=== PATIENT | male | born 1960 | race Caucasian/White ===

== ENCOUNTER 2016-03-24 09:15 | Outpatient (RCR) | payer BC, OTHER ==
--- OUTSIDE RECORDS SUMMARY | 2016-01-22 13:27 | XMS REPORT | Continuity of Care Document ---
Author Author [facility] Organization [facility] Address Unknown Phone Unavailable Care Team Providers Care Grain Buyer Name Role Phone PCP Unavailable Source Comments Some departments are not documenting in the electronic medical record. If you do not see the information that you expected, contact Release of Information in the Health Information Management department at [phone] for further assistance in locating additional records.[facility] Active Allergies and Adverse Reactions Not on File Current Medications Not on file Active Problems Not on file Most Recent Encounters Date Type Specialty Providers Description 10/27/2015 Documentation Oncology Crissy Navarro, RN Social History Tobacco Use Types Packs/Day Years Used Date Never Assessed Plan of Care Health Maintenance Due Date Last Done Comments Hepatitis C Screening 1960 Physical (Comprehensive) 1969 Exam Pertussis Vaccine 1973 Tetanus Vaccine 1979 Colorectal Cancer 02/27/2012 Screening Influenza Vaccine 12/17/2015 Results from Last 3 Months Not on file
[2016-01-22 13:39] LABS: BASOPHILS % (AUTO) 1 % (0-10); EOSINOPHILS % (AUTO) 0 % (0-10); LYMPHOCYTES # (AUTO) 0.6 X 10^3 (1.0-4.0); LYMPHOCYTES % (AUTO) 12 % (12-44); MEAN CORPUSCULAR HEMOGLOBIN 31 PG (25-34); MEAN CORPUSCULAR HGB CONC 34 G/DL (32-36); MEAN CORPUSCULAR VOLUME 93 FL (80-99); MEAN PLATELET VOLUME 10.1 FL (7.4-10.4); MONOCYTES # (AUTO) 0.2 X 10^3 (0.0-1.0); MONOCYTES % (AUTO) 3 % (0-12); NEUTROPHILS # (AUTO) 4.4 X 10^3 (1.8-7.8); NEUTROPHILS % (AUTO) 85 % (42-75); PLATELET COUNT 294 10^3/uL (130-400); RED BLOOD COUNT 4.28 10^6/uL (4.35-5.85); RED CELL DISTRIBUTION WIDTH 14.7 % (10.0-14.5); WHITE BLOOD COUNT 5.2 10^3/uL (4.3-11.0)
[2016-01-22 13:59] LABS: ALANINE AMINOTRANSFERASE 19 U/L (0-55); ALBUMIN 4.4 G/DL (3.2-4.5); ANION GAP 15 MMOL/L (5-14); ASPARTATE AMINO TRANSFERASE 15 U/L (5-34); BILIRUBIN,TOTAL 0.9 MG/DL (0.1-1.0); BLOOD UREA NITROGEN 14 MG/DL (7-18); BUN/CREATININE RATIO 15; CALCIUM 9.2 MG/DL (8.5-10.1); CARBON DIOXIDE 20 MMOL/L (21-32); CHLORIDE 101 MMOL/L (98-107); CREATININE SERUM 0.95 MG/DL (0.60-1.30); GFR ESTIMATED > 60; GLUCOSE 140 MG/DL (70-105); POTASSIUM 3.8 MMOL/L (3.6-5.0); SODIUM 136 MMOL/L (135-145); TOTAL PROTEIN 6.6 G/DL (6.4-8.2)
[2016-01-23 02:09] LABS: LIGHT CHAIN KAPPA SERUM QUANT 9.31 mg/L (3.30-19.40); LIGHT CHAIN LAMBDA SERUM QUANT 7.27 mg/L (5.71-26.30)
[2016-02-05 09:59] LABS: BASOPHILS % (AUTO) 0 % (0-10); EOSINOPHILS # (AUTO) 0.1 10^3/uL (0.0-0.3); EOSINOPHILS % (AUTO) 0 % (0-10); LYMPHOCYTES % (AUTO) 8 % (12-44); MEAN CORPUSCULAR HEMOGLOBIN 32 PG (25-34); MEAN CORPUSCULAR HGB CONC 34 G/DL (32-36); MEAN CORPUSCULAR VOLUME 94 FL (80-99); MEAN PLATELET VOLUME 9.8 FL (7.4-10.4); MONOCYTES # (AUTO) 1.2 X 10^3 (0.0-1.0); MONOCYTES % (AUTO) 9 % (0-12); NEUTROPHILS # (AUTO) 11.1 X 10^3 (1.8-7.8); NEUTROPHILS % (AUTO) 83 % (42-75); PLATELET COUNT 66 10^3/uL (130-400); RED BLOOD COUNT 4.24 10^6/uL (4.35-5.85); RED CELL DISTRIBUTION WIDTH 15.4 % (10.0-14.5); WHITE BLOOD COUNT 13.4 10^3/uL (4.3-11.0)
[2016-02-05 10:32] LABS: ANION GAP 8 MMOL/L (5-14); BLOOD UREA NITROGEN 13 MG/DL (7-18); BUN/CREATININE RATIO 14; CALCIUM 9.2 MG/DL (8.5-10.1); CARBON DIOXIDE 28 MMOL/L (21-32); CHLORIDE 103 MMOL/L (98-107); CREATININE SERUM 0.93 MG/DL (0.60-1.30); GFR ESTIMATED > 60; GLUCOSE 131 MG/DL (70-105); SODIUM 139 MMOL/L (135-145)
[~2016-03-24 09:15] MED LIST: AMLO10TA4 PO; BORTEZOMIB 3.5 MG VELCADE SC SCH; ENAL5TAB PO; FLUO40CA12 PO; TEST100V3 IM
[2016-03-24 09:48] LABS: BASOPHILS # (AUTO) 0.1 10^3/uL (0.0-0.1); BASOPHILS % (AUTO) 1 % (0-10); EOSINOPHILS # (AUTO) 0.1 10^3/uL (0.0-0.3); EOSINOPHILS % (AUTO) 3 % (0-10); LYMPHOCYTES # (AUTO) 1.3 X 10^3 (1.0-4.0); LYMPHOCYTES % (AUTO) 25 % (12-44); MEAN CORPUSCULAR HEMOGLOBIN 32 PG (25-34); MEAN CORPUSCULAR HGB CONC 34 G/DL (32-36); MEAN CORPUSCULAR VOLUME 93 FL (80-99); MEAN PLATELET VOLUME 9.6 FL (7.4-10.4); MONOCYTES # (AUTO) 0.7 X 10^3 (0.0-1.0); MONOCYTES % (AUTO) 14 % (0-12); NEUTROPHILS # (AUTO) 2.9 X 10^3 (1.8-7.8); NEUTROPHILS % (AUTO) 57 % (42-75); PLATELET COUNT 235 10^3/uL (130-400); RED BLOOD COUNT 4.42 10^6/uL (4.35-5.85); RED CELL DISTRIBUTION WIDTH 16.1 % (10.0-14.5); WHITE BLOOD COUNT 5.1 10^3/uL (4.3-11.0)
[2016-03-24 10:17] LABS: ALANINE AMINOTRANSFERASE 20 U/L (0-55); ALBUMIN 4.5 G/DL (3.2-4.5); ANION GAP 12 MMOL/L (5-14); ASPARTATE AMINO TRANSFERASE 20 U/L (5-34); BILIRUBIN,TOTAL 0.7 MG/DL (0.1-1.0); BLOOD UREA NITROGEN 17 MG/DL (7-18); BUN/CREATININE RATIO 18; CALCIUM 9.8 MG/DL (8.5-10.1); CARBON DIOXIDE 20 MMOL/L (21-32); CHLORIDE 105 MMOL/L (98-107); CREATININE SERUM 0.93 MG/DL (0.60-1.30); GFR ESTIMATED > 60; GLUCOSE 121 MG/DL (70-105); LACTATE DEHYDROGENASE 269 U/L (125-220); POTASSIUM 3.8 MMOL/L (3.6-5.0); SODIUM 137 MMOL/L (135-145); TOTAL PROTEIN 6.9 G/DL (6.4-8.2)
[2016-03-24] MEDS ORDERED: ZOLEDRONIC ACID (CANCER CTR) 4 MG in NS (IVPB) CANCER CENTER 100 ML IV SCH (11:00)
[2016-03-24 11:01] LABS: MAGNESIUM 2.2 MG/DL (1.8-2.4)
[2016-04-21 10:59] LABS: BASOPHILS % (AUTO) 1 % (0-10); EOSINOPHILS # (AUTO) 0.1 10^3/uL (0.0-0.3); EOSINOPHILS % (AUTO) 2 % (0-10); LYMPHOCYTES # (AUTO) 1.4 X 10^3 (1.0-4.0); LYMPHOCYTES % (AUTO) 33 % (12-44); MEAN CORPUSCULAR HEMOGLOBIN 33 PG (25-34); MEAN CORPUSCULAR HGB CONC 34 G/DL (32-36); MEAN CORPUSCULAR VOLUME 96 FL (80-99); MEAN PLATELET VOLUME 9.1 FL (7.4-10.4); MONOCYTES # (AUTO) 0.5 X 10^3 (0.0-1.0); MONOCYTES % (AUTO) 11 % (0-12); NEUTROPHILS # (AUTO) 2.4 X 10^3 (1.8-7.8); NEUTROPHILS % (AUTO) 53 % (42-75); PLATELET COUNT 218 10^3/uL (130-400); RED BLOOD COUNT 4.26 10^6/uL (4.35-5.85); RED CELL DISTRIBUTION WIDTH 14.9 % (10.0-14.5); WHITE BLOOD COUNT 4.4 10^3/uL (4.3-11.0)
[2016-04-21 11:29] LABS: ALANINE AMINOTRANSFERASE 19 U/L (0-55); ALBUMIN 4.5 G/DL (3.2-4.5); ANION GAP 10 MMOL/L (5-14); ASPARTATE AMINO TRANSFERASE 16 U/L (5-34); BILIRUBIN,TOTAL 0.5 MG/DL (0.1-1.0); BLOOD UREA NITROGEN 21 MG/DL (7-18); BUN/CREATININE RATIO 24; CALCIUM 9.6 MG/DL (8.5-10.1); CARBON DIOXIDE 25 MMOL/L (21-32); CHLORIDE 102 MMOL/L (98-107); CREATININE SERUM 0.87 MG/DL (0.60-1.30); GFR ESTIMATED > 60; GLUCOSE 117 MG/DL (70-105); MAGNESIUM 2.4 MG/DL (1.8-2.4); POTASSIUM 4.2 MMOL/L (3.6-5.0); SODIUM 137 MMOL/L (135-145); TOTAL PROTEIN 6.9 G/DL (6.4-8.2)
[2016-04-22 06:39] LABS: LIGHT CHAIN KAPPA SERUM QUANT 10.98 mg/L (3.30-19.40); LIGHT CHAIN LAMBDA SERUM QUANT 11.66 mg/L (5.71-26.30)
[2016-04-27 06:54] LABS: IMMUNOFIX PATH REPORT NUMBER Complete
== END 2016-04-21 10:21 | disposition home or self-care (01) ==
LOC: ONC 09:15
PROVIDERS: ATTEND Internal Medicine Hematology & Oncology
DX: D47.2 Monoclonal gammopathy (principal); Z79.899 Other long term (current) drug therapy
CPT/HCPCS: 36415; 80048; 80053; 82232; 82784; 83615; 83735; 83883; 85025; 86334; 96365; 99213

== ENCOUNTER 2016-07-18 09:50 | Outpatient (RCR) | payer BC, OTHER ==
--- OUTSIDE RECORDS SUMMARY | 2016-04-21 10:27 | XMS REPORT | Continuity of Care Document ---
Author Author [facility] Organization [facility] Address Unknown Phone Unavailable Care Team Providers Care Glove Tagger Name Role Phone PCP Unavailable Source Comments Some departments are not documenting in the electronic medical record. If you do not see the information that you expected, contact Release of Information in the Health Information Management department at [phone] for further assistance in locating additional records.[facility] Active Allergies and Adverse Reactions Not on File Current Medications Not on file Active Problems Not on file Social History Tobacco Use Types Packs/Day Years Used Date Never Assessed Plan of Care Health Maintenance Due Date Last Done Comments Hepatitis C Screening 1960 Physical (Comprehensive) 1969 Exam Pertussis Vaccine 1973 Tetanus Vaccine 1979 Colorectal Cancer 02/27/2012 Screening Influenza Vaccine 12/17/2015 Results from Last 3 Months Not on file
[2016-05-19 10:15] LABS: BASOPHILS % (AUTO) 0 % (0-10); EOSINOPHILS # (AUTO) 0.1 10^3/uL (0.0-0.3); EOSINOPHILS % (AUTO) 2 % (0-10); LYMPHOCYTES # (AUTO) 1.8 X 10^3 (1.0-4.0); LYMPHOCYTES % (AUTO) 40 % (12-44); MEAN CORPUSCULAR HEMOGLOBIN 33 PG (25-34); MEAN CORPUSCULAR HGB CONC 34 G/DL (32-36); MEAN CORPUSCULAR VOLUME 96 FL (80-99); MEAN PLATELET VOLUME 9.1 FL (7.4-10.4); MONOCYTES # (AUTO) 0.5 X 10^3 (0.0-1.0); MONOCYTES % (AUTO) 10 % (0-12); NEUTROPHILS # (AUTO) 2.2 X 10^3 (1.8-7.8); NEUTROPHILS % (AUTO) 48 % (42-75); PLATELET COUNT 208 10^3/uL (130-400); RED CELL DISTRIBUTION WIDTH 13.5 % (10.0-14.5); WHITE BLOOD COUNT 4.6 10^3/uL (4.3-11.0)
[2016-05-19 10:42] LABS: ALANINE AMINOTRANSFERASE 18 U/L (0-55); ALBUMIN 4.5 G/DL (3.2-4.5); ANION GAP 9 MMOL/L (5-14); ASPARTATE AMINO TRANSFERASE 19 U/L (5-34); BILIRUBIN,TOTAL 0.5 MG/DL (0.1-1.0); BLOOD UREA NITROGEN 17 MG/DL (7-18); BUN/CREATININE RATIO 16; CALCIUM 9.4 MG/DL (8.5-10.1); CARBON DIOXIDE 26 MMOL/L (21-32); CHLORIDE 102 MMOL/L (98-107); CREATININE SERUM 1.06 MG/DL (0.60-1.30); GFR ESTIMATED > 60; GLUCOSE 109 MG/DL (70-105); LACTATE DEHYDROGENASE 204 U/L (125-220); MAGNESIUM 2.1 MG/DL (1.8-2.4); POTASSIUM 4.2 MMOL/L (3.6-5.0); SODIUM 137 MMOL/L (135-145); TOTAL PROTEIN 6.9 G/DL (6.4-8.2)
[2016-05-20 02:11] LABS: LIGHT CHAIN KAPPA SERUM QUANT 11.49 mg/L (3.30-19.40); LIGHT CHAIN LAMBDA SERUM QUANT 10.43 mg/L (5.71-26.30)
[2016-06-20 09:45] LABS: BASOPHILS % (AUTO) 0 % (0-10); EOSINOPHILS # (AUTO) 0.1 10^3/uL (0.0-0.3); EOSINOPHILS % (AUTO) 1 % (0-10); LYMPHOCYTES # (AUTO) 1.3 X 10^3 (1.0-4.0); LYMPHOCYTES % (AUTO) 28 % (12-44); MEAN CORPUSCULAR HEMOGLOBIN 33 PG (25-34); MEAN CORPUSCULAR HGB CONC 34 G/DL (32-36); MEAN CORPUSCULAR VOLUME 97 FL (80-99); MEAN PLATELET VOLUME 9.3 FL (7.4-10.4); MONOCYTES # (AUTO) 0.6 X 10^3 (0.0-1.0); MONOCYTES % (AUTO) 13 % (0-12); NEUTROPHILS # (AUTO) 2.6 X 10^3 (1.8-7.8); NEUTROPHILS % (AUTO) 57 % (42-75); PLATELET COUNT 204 10^3/uL (130-400); RED CELL DISTRIBUTION WIDTH 13.4 % (10.0-14.5); WHITE BLOOD COUNT 4.6 10^3/uL (4.3-11.0)
[2016-06-20 10:12] LABS: ALANINE AMINOTRANSFERASE 24 U/L (0-55); ALBUMIN 4.6 G/DL (3.2-4.5); ANION GAP 11 MMOL/L (5-14); ASPARTATE AMINO TRANSFERASE 22 U/L (5-34); BILIRUBIN,TOTAL 0.5 MG/DL (0.1-1.0); BLOOD UREA NITROGEN 24 MG/DL (7-18); BUN/CREATININE RATIO 21; CALCIUM 9.6 MG/DL (8.5-10.1); CARBON DIOXIDE 23 MMOL/L (21-32); CHLORIDE 102 MMOL/L (98-107); CREATININE SERUM 1.13 MG/DL (0.60-1.30); GFR ESTIMATED > 60; GLUCOSE 106 MG/DL (70-105); POTASSIUM 4.2 MMOL/L (3.6-5.0); SODIUM 136 MMOL/L (135-145)
[2016-06-21 06:21] LABS: LIGHT CHAIN KAPPA SERUM QUANT 9.85 mg/L (3.30-19.40); LIGHT CHAIN LAMBDA SERUM QUANT 10.96 mg/L (5.71-26.30)
[2016-06-27 11:07] LABS: BASOPHILS % (AUTO) 1 % (0-10); EOSINOPHILS # (AUTO) 0.2 10^3/uL (0.0-0.3); EOSINOPHILS % (AUTO) 4 % (0-10); LYMPHOCYTES # (AUTO) 1.1 X 10^3 (1.0-4.0); LYMPHOCYTES % (AUTO) 26 % (12-44); MEAN CORPUSCULAR HEMOGLOBIN 33 PG (25-34); MEAN CORPUSCULAR HGB CONC 34 G/DL (32-36); MEAN CORPUSCULAR VOLUME 98 FL (80-99); MEAN PLATELET VOLUME 9.1 FL (7.4-10.4); MONOCYTES # (AUTO) 0.4 X 10^3 (0.0-1.0); MONOCYTES % (AUTO) 10 % (0-12); NEUTROPHILS # (AUTO) 2.6 X 10^3 (1.8-7.8); NEUTROPHILS % (AUTO) 60 % (42-75); PLATELET COUNT 198 10^3/uL (130-400); RED BLOOD COUNT 4.57 10^6/uL (4.35-5.85); RED CELL DISTRIBUTION WIDTH 13.8 % (10.0-14.5); WHITE BLOOD COUNT 4.3 10^3/uL (4.3-11.0)
[2016-06-27 11:56] LABS: ANION GAP 10 MMOL/L (5-14); BLOOD UREA NITROGEN 11 MG/DL (7-18); BUN/CREATININE RATIO 10; CARBON DIOXIDE 28 MMOL/L (21-32); CHLORIDE 102 MMOL/L (98-107); GFR ESTIMATED > 60; GLUCOSE 110 MG/DL (70-105); SODIUM 140 MMOL/L (135-145)
[2016-07-04 10:28] LABS: BASOPHILS % (AUTO) 1 % (0-10); EOSINOPHILS # (AUTO) 0.1 10^3/uL (0.0-0.3); EOSINOPHILS % (AUTO) 3 % (0-10); LYMPHOCYTES # (AUTO) 1.3 X 10^3 (1.0-4.0); LYMPHOCYTES % (AUTO) 29 % (12-44); MEAN CORPUSCULAR HEMOGLOBIN 33 PG (25-34); MEAN CORPUSCULAR HGB CONC 34 G/DL (32-36); MEAN CORPUSCULAR VOLUME 98 FL (80-99); MEAN PLATELET VOLUME 9.3 FL (7.4-10.4); MONOCYTES # (AUTO) 0.7 X 10^3 (0.0-1.0); MONOCYTES % (AUTO) 17 % (0-12); NEUTROPHILS # (AUTO) 2.1 X 10^3 (1.8-7.8); NEUTROPHILS % (AUTO) 49 % (42-75); PLATELET COUNT 186 10^3/uL (130-400); RED BLOOD COUNT 4.33 10^6/uL (4.35-5.85); RED CELL DISTRIBUTION WIDTH 13.8 % (10.0-14.5); WHITE BLOOD COUNT 4.3 10^3/uL (4.3-11.0)
[2016-07-04 10:50] LABS: ANION GAP 9 MMOL/L (5-14); BLOOD UREA NITROGEN 12 MG/DL (7-18); BUN/CREATININE RATIO 12; CALCIUM 9.2 MG/DL (8.5-10.1); CARBON DIOXIDE 26 MMOL/L (21-32); CHLORIDE 104 MMOL/L (98-107); CREATININE SERUM 1.04 MG/DL (0.60-1.30); GFR ESTIMATED > 60; GLUCOSE 112 MG/DL (70-105); POTASSIUM 4.3 MMOL/L (3.6-5.0); SODIUM 139 MMOL/L (135-145)
[2016-07-11 10:50] LABS: BASOPHILS % (AUTO) 1 % (0-10); EOSINOPHILS # (AUTO) 0.2 10^3/uL (0.0-0.3); EOSINOPHILS % (AUTO) 5 % (0-10); LYMPHOCYTES # (AUTO) 1.3 X 10^3 (1.0-4.0); LYMPHOCYTES % (AUTO) 37 % (12-44); MEAN CORPUSCULAR HEMOGLOBIN 33 PG (25-34); MEAN CORPUSCULAR HGB CONC 34 G/DL (32-36); MEAN CORPUSCULAR VOLUME 97 FL (80-99); MEAN PLATELET VOLUME 9.6 FL (7.4-10.4); MONOCYTES # (AUTO) 0.6 X 10^3 (0.0-1.0); MONOCYTES % (AUTO) 17 % (0-12); NEUTROPHILS # (AUTO) 1.4 X 10^3 (1.8-7.8); NEUTROPHILS % (AUTO) 40 % (42-75); PLATELET COUNT 173 10^3/uL (130-400); RED BLOOD COUNT 4.45 10^6/uL (4.35-5.85); RED CELL DISTRIBUTION WIDTH 13.9 % (10.0-14.5); WHITE BLOOD COUNT 3.4 10^3/uL (4.3-11.0)
[2016-07-11 11:35] LABS: CALCIUM 9.3 MG/DL (8.5-10.1); CREATININE SERUM 1.39 MG/DL (0.60-1.30); POTASSIUM 4.3 MMOL/L (3.6-5.0)
[~2016-07-18 09:50] MED LIST changes: +ZOLEDRONIC ACID (CANCER CTR) 4 MG in NS (IVPB) CANCER CENTER 100 ML IV SCH
[2016-07-18 10:16] LABS: BASOPHILS # (AUTO) 0.1 10^3/uL (0.0-0.1); BASOPHILS % (AUTO) 3 % (0-10); EOSINOPHILS # (AUTO) 0.2 10^3/uL (0.0-0.3); EOSINOPHILS % (AUTO) 6 % (0-10); LYMPHOCYTES # (AUTO) 1.3 X 10^3 (1.0-4.0); LYMPHOCYTES % (AUTO) 35 % (12-44); MEAN CORPUSCULAR HEMOGLOBIN 33 PG (25-34); MEAN CORPUSCULAR HGB CONC 34 G/DL (32-36); MEAN CORPUSCULAR VOLUME 97 FL (80-99); MEAN PLATELET VOLUME 10.3 FL (7.4-10.4); MONOCYTES # (AUTO) 0.6 X 10^3 (0.0-1.0); MONOCYTES % (AUTO) 15 % (0-12); NEUTROPHILS # (AUTO) 1.5 X 10^3 (1.8-7.8); NEUTROPHILS % (AUTO) 41 % (42-75); PLATELET COUNT 181 10^3/uL (130-400); RED BLOOD COUNT 4.41 10^6/uL (4.35-5.85); RED CELL DISTRIBUTION WIDTH 14.1 % (10.0-14.5); WHITE BLOOD COUNT 3.7 10^3/uL (4.3-11.0)
[2016-07-18 10:23] LABS: PEP REPORT SEE PATH REPORT
[2016-07-18 10:57] LABS: ALBUMIN 4.4 G/DL (3.2-4.5); BILIRUBIN,TOTAL 0.5 MG/DL (0.1-1.0); CALCIUM 9.8 MG/DL (8.5-10.1); CREATININE SERUM 1.34 MG/DL (0.60-1.30); POTASSIUM 4.1 MMOL/L (3.6-5.0); TOTAL PROTEIN 7.1 G/DL (6.4-8.2)
[2016-07-18] MEDS ORDERED: ZOLEDRONIC ACID (CANCER CTR) 3 MG in NS (IVPB) CANCER CENTER 100 ML IV SCH (12:00)
[2016-07-19 03:25] LABS: LIGHT CHAIN KAPPA SERUM QUANT 20.05 mg/L (3.30-19.40); LIGHT CHAIN LAMBDA SERUM QUANT 16.38 mg/L (5.71-26.30)
[2016-07-21 07:32] LABS: CLIN PATHOLOGY REPORT FOOTNOTE; SERUM PROTEIN ELEC DETAIL L-17-0004350
== END 2016-07-20 | disposition home or self-care (01) ==
LOC: ONC 09:50
PROVIDERS: ATTEND Internal Medicine Hematology & Oncology
DX: D47.2 Monoclonal gammopathy (principal); Z79.899 Other long term (current) drug therapy
CPT/HCPCS: 36415; 80048; 80053; 82232; 82784; 83615; 83735; 83883; 84155; 84165; 85025; 96365; 99213

== ENCOUNTER 2016-11-09 09:08 | Outpatient (RCR) | payer BC, OTHER ==
[2016-08-15 10:29] LABS: BASOPHILS # (AUTO) 0.1 10^3/uL (0.0-0.1); BASOPHILS % (AUTO) 4 % (0-10); EOSINOPHILS # (AUTO) 0.3 10^3/uL (0.0-0.3); EOSINOPHILS % (AUTO) 8 % (0-10); LYMPHOCYTES # (AUTO) 1.1 X 10^3 (1.0-4.0); LYMPHOCYTES % (AUTO) 35 % (12-44); MEAN CORPUSCULAR HEMOGLOBIN 33 PG (25-34); MEAN CORPUSCULAR HGB CONC 34 G/DL (32-36); MEAN CORPUSCULAR VOLUME 98 FL (80-99); MEAN PLATELET VOLUME 9.6 FL (7.4-10.4); MONOCYTES # (AUTO) 0.6 X 10^3 (0.0-1.0); MONOCYTES % (AUTO) 18 % (0-12); NEUTROPHILS # (AUTO) 1.1 X 10^3 (1.8-7.8); NEUTROPHILS % (AUTO) 35 % (42-75); PLATELET COUNT 164 10^3/uL (130-400); RED BLOOD COUNT 4.43 10^6/uL (4.35-5.85); RED CELL DISTRIBUTION WIDTH 14.6 % (10.0-14.5); WHITE BLOOD COUNT 3.2 10^3/uL (4.3-11.0)
[2016-08-15 10:57] LABS: PEP REPORT SEE PATH REPORT
[2016-08-15 11:36] LABS: ALANINE AMINOTRANSFERASE 30 U/L (0-55); ALBUMIN 4.3 G/DL (3.2-4.5); ANION GAP 10 MMOL/L (5-14); ASPARTATE AMINO TRANSFERASE 21 U/L (5-34); BILIRUBIN,TOTAL 0.9 MG/DL (0.1-1.0); BLOOD UREA NITROGEN 13 MG/DL (7-18); BUN/CREATININE RATIO 12; CARBON DIOXIDE 24 MMOL/L (21-32); CHLORIDE 100 MMOL/L (98-107); CREATININE SERUM 1.09 MG/DL (0.60-1.30); GFR ESTIMATED > 60; GLUCOSE 102 MG/DL (70-105); POTASSIUM 3.7 MMOL/L (3.6-5.0); SODIUM 134 MMOL/L (135-145); TOTAL PROTEIN 6.9 G/DL (6.4-8.2)
[2016-08-16 03:01] LABS: IMMUNOGLOBULIN IGA 117 mg/dL (71-263); IMMUNOGLOBULIN IGG 944 mg/dL (672-1680); LIGHT CHAIN KAPPA SERUM QUANT 19.43 mg/L (3.30-19.40); LIGHT CHAIN LAMBDA SERUM QUANT 17.94 mg/L (5.71-26.30)
[2016-08-16 07:27] LABS: IMMUNOGLOBULIN IGM 47 mg/dL (47-209)
[2016-08-17 10:13] LABS: CLIN PATHOLOGY REPORT FOOTNOTE
[2016-08-17 10:14] LABS: SERUM PROTEIN ELEC DETAIL L-17-0005669
[2016-09-14 10:10] LABS: BASOPHILS # (AUTO) 0.1 10^3/uL (0.0-0.1); BASOPHILS % (AUTO) 3 % (0-10); EOSINOPHILS # (AUTO) 0.2 10^3/uL (0.0-0.3); EOSINOPHILS % (AUTO) 7 % (0-10); LYMPHOCYTES # (AUTO) 0.9 X 10^3 (1.0-4.0); LYMPHOCYTES % (AUTO) 33 % (12-44); MEAN CORPUSCULAR HEMOGLOBIN 34 PG (25-34); MEAN CORPUSCULAR HGB CONC 35 G/DL (32-36); MEAN CORPUSCULAR VOLUME 99 FL (80-99); MEAN PLATELET VOLUME 9.5 FL (7.4-10.4); MONOCYTES # (AUTO) 0.4 X 10^3 (0.0-1.0); MONOCYTES % (AUTO) 13 % (0-12); NEUTROPHILS # (AUTO) 1.2 X 10^3 (1.8-7.8); NEUTROPHILS % (AUTO) 45 % (42-75); PLATELET COUNT 165 10^3/uL (130-400); RED BLOOD COUNT 3.98 10^6/uL (4.35-5.85); RED CELL DISTRIBUTION WIDTH 14.2 % (10.0-14.5); WHITE BLOOD COUNT 2.8 10^3/uL (4.3-11.0)
[2016-09-14 10:14] LABS: PEP REPORT SEE PATH REPORT
[2016-09-14 10:37] LABS: ALANINE AMINOTRANSFERASE 28 U/L (0-55); ANION GAP 10 MMOL/L (5-14); ASPARTATE AMINO TRANSFERASE 22 U/L (5-34); BILIRUBIN,TOTAL 0.5 MG/DL (0.1-1.0); BLOOD UREA NITROGEN 13 MG/DL (7-18); BUN/CREATININE RATIO 13; CALCIUM 9.1 MG/DL (8.5-10.1); CARBON DIOXIDE 24 MMOL/L (21-32); CHLORIDE 103 MMOL/L (98-107); CREATININE SERUM 1.01 MG/DL (0.60-1.30); GFR ESTIMATED > 60; GLUCOSE 132 MG/DL (70-105); POTASSIUM 3.7 MMOL/L (3.6-5.0); SODIUM 137 MMOL/L (135-145); TOTAL PROTEIN 6.6 G/DL (6.4-8.2)
[2016-09-15 05:13] LABS: IMMUNOGLOBULIN IGA 112 mg/dL (71-263); IMMUNOGLOBULIN IGG 826 mg/dL (672-1680); LIGHT CHAIN KAPPA SERUM QUANT 21.17 mg/L (3.30-19.40)
[2016-09-15 07:39] LABS: IMMUNOGLOBULIN IGM 30 mg/dL (47-209)
[2016-09-17 09:13] LABS: CLIN PATHOLOGY REPORT FOOTNOTE; SERUM PROTEIN ELEC DETAIL L-17-0007076
[2016-10-12 10:34] LABS: BASOPHILS # (AUTO) 0.1 10^3/uL (0.0-0.1); BASOPHILS % (AUTO) 3 % (0-10); EOSINOPHILS # (AUTO) 0.3 10^3/uL (0.0-0.3); EOSINOPHILS % (AUTO) 12 % (0-10); LYMPHOCYTES # (AUTO) 0.9 X 10^3 (1.0-4.0); LYMPHOCYTES % (AUTO) 33 % (12-44); MEAN CORPUSCULAR HEMOGLOBIN 34 PG (25-34); MEAN CORPUSCULAR HGB CONC 34 G/DL (32-36); MEAN CORPUSCULAR VOLUME 100 FL (80-99); MEAN PLATELET VOLUME 9.3 FL (7.4-10.4); MONOCYTES # (AUTO) 0.5 X 10^3 (0.0-1.0); MONOCYTES % (AUTO) 17 % (0-12); NEUTROPHILS % (AUTO) 35 % (42-75); PLATELET COUNT 156 10^3/uL (130-400); RED BLOOD COUNT 4.09 10^6/uL (4.35-5.85); RED CELL DISTRIBUTION WIDTH 14.7 % (10.0-14.5); WHITE BLOOD COUNT 2.8 10^3/uL (4.3-11.0)
[2016-10-12 10:45] LABS: PEP REPORT SEE PATH REPORT
[2016-10-12 11:48] LABS: ALANINE AMINOTRANSFERASE 29 U/L (0-55); ALBUMIN 3.9 GM/DL (3.2-4.5); ANION GAP 10 MMOL/L (5-14); ASPARTATE AMINO TRANSFERASE 23 U/L (5-34); BILIRUBIN,TOTAL 0.6 MG/DL (0.1-1.0); BLOOD UREA NITROGEN 10 MG/DL (7-18); BUN/CREATININE RATIO 11; CALCIUM 9.3 MG/DL (8.5-10.1); CARBON DIOXIDE 24 MMOL/L (21-32); CHLORIDE 103 MMOL/L (98-107); CREATININE SERUM 0.94 MG/DL (0.60-1.30); GFR ESTIMATED > 60; GLUCOSE 140 MG/DL (70-105); HEMOLYSIS 57 (-100-29); ICTERUS 0.7 (-100-1.9); LIPEMIA 10 (-100-49); POTASSIUM 3.9 MMOL/L (3.6-5.0); SODIUM 137 MMOL/L (135-145); TOTAL PROTEIN 7.1 GM/DL (6.4-8.2)
[2016-10-13 02:51] LABS: IMMUNOGLOBULIN IGA 135 mg/dL (71-263); IMMUNOGLOBULIN IGG 966 mg/dL (672-1680)
[2016-10-13 07:11] LABS: IMMUNOGLOBULIN IGM 47 mg/dL (47-209)
[2016-10-14 10:35] LABS: CLIN PATHOLOGY REPORT FOOTNOTE
[2016-10-14 10:36] LABS: SERUM PROTEIN ELEC DETAIL L-17-0008378
[~2016-11-09 09:08] MED LIST changes: -BORTEZOMIB 3.5 MG VELCADE SC SCH; +ZOLEDRONIC ACID (CANCER CTR) 3 MG in NS (IVPB) CANCER CENTER 100 ML IV SCH; -ZOLEDRONIC ACID (CANCER CTR) 4 MG in NS (IVPB) CANCER CENTER 100 ML IV SCH
[2016-11-09 09:35] LABS: BASOPHILS # (AUTO) 0.1 10^3/uL (0.0-0.1); BASOPHILS % (AUTO) 3 % (0-10); EOSINOPHILS # (AUTO) 0.2 10^3/uL (0.0-0.3); EOSINOPHILS % (AUTO) 7 % (0-10); LYMPHOCYTES # (AUTO) 1.1 X 10^3 (1.0-4.0); LYMPHOCYTES % (AUTO) 34 % (12-44); MEAN CORPUSCULAR HEMOGLOBIN 33 PG (25-34); MEAN CORPUSCULAR HGB CONC 34 G/DL (32-36); MEAN CORPUSCULAR VOLUME 99 FL (80-99); MEAN PLATELET VOLUME 9.9 FL (7.4-10.4); MONOCYTES # (AUTO) 0.5 X 10^3 (0.0-1.0); MONOCYTES % (AUTO) 15 % (0-12); NEUTROPHILS # (AUTO) 1.3 X 10^3 (1.8-7.8); NEUTROPHILS % (AUTO) 42 % (42-75); PLATELET COUNT 166 10^3/uL (130-400); RED BLOOD COUNT 4.16 10^6/uL (4.35-5.85); RED CELL DISTRIBUTION WIDTH 14.8 % (10.0-14.5); WHITE BLOOD COUNT 3.2 10^3/uL (4.3-11.0)
[2016-11-09 09:39] LABS: PEP REPORT SEE PATH REPORT
[2016-11-09 09:58] LABS: ALANINE AMINOTRANSFERASE 35 U/L (0-55); ALBUMIN 4.2 GM/DL (3.2-4.5); ANION GAP 7 MMOL/L (5-14); ASPARTATE AMINO TRANSFERASE 24 U/L (5-34); BILIRUBIN,TOTAL 0.8 MG/DL (0.1-1.0); BLOOD UREA NITROGEN 13 MG/DL (7-18); BUN/CREATININE RATIO 13; CALCIUM 9.3 MG/DL (8.5-10.1); CARBON DIOXIDE 29 MMOL/L (21-32); CHLORIDE 102 MMOL/L (98-107); CREATININE SERUM 1.02 MG/DL (0.60-1.30); GFR ESTIMATED > 60; GLUCOSE 117 MG/DL (70-105); POTASSIUM 3.5 MMOL/L (3.6-5.0); SODIUM 138 MMOL/L (135-145)
[2016-11-10 02:51] LABS: IMMUNOGLOBULIN IGA 155 mg/dL (71-263); IMMUNOGLOBULIN IGG 1046 mg/dL (672-1680); LIGHT CHAIN KAPPA SERUM QUANT 21.22 mg/L (3.30-19.40); LIGHT CHAIN LAMBDA SERUM QUANT 17.91 mg/L (5.71-26.30)
[2016-11-10 07:20] LABS: IMMUNOGLOBULIN IGM 27 mg/dL (47-209)
== END 2016-11-13 | disposition home or self-care (01) ==
LOC: ONC 09:08
PROVIDERS: ATTEND Internal Medicine Hematology & Oncology
DX: C90.00 Multiple myeloma not having achieved remission (principal); I82.5Z2 Chronic embolism and thrombosis of unspecified deep veins of left distal lower extremity; I10 Essential (primary) hypertension; R19.7 Diarrhea, unspecified; Z79.01 Long term (current) use of anticoagulants; Z79.899 Other long term (current) drug therapy; Z94.81 Bone marrow transplant status
CPT/HCPCS: 36415; 80053; 82232; 82784; 83883; 84155; 84165; 85025; 87045; 87046; 87077; 87324; 87328; 87329; 87449; 96365; 99213

== ENCOUNTER 2017-01-04 09:09 | Outpatient (RCR) | payer BC, OTHER ==
[2016-12-07 10:20] LABS: BASOPHILS # (AUTO) 0.1 10^3/uL (0.0-0.1); BASOPHILS % (AUTO) 3 % (0-10); EOSINOPHILS # (AUTO) 0.1 10^3/uL (0.0-0.3); EOSINOPHILS % (AUTO) 5 % (0-10); LYMPHOCYTES % (AUTO) 40 % (12-44); MEAN CORPUSCULAR HEMOGLOBIN 34 PG (25-34); MEAN CORPUSCULAR HGB CONC 35 G/DL (32-36); MEAN CORPUSCULAR VOLUME 99 FL (80-99); MEAN PLATELET VOLUME 9.6 FL (7.4-10.4); MONOCYTES # (AUTO) 0.5 X 10^3 (0.0-1.0); MONOCYTES % (AUTO) 18 % (0-12); NEUTROPHILS # (AUTO) 0.9 X 10^3 (1.8-7.8); NEUTROPHILS % (AUTO) 35 % (42-75); PLATELET COUNT 165 10^3/uL (130-400); RED BLOOD COUNT 4.18 10^6/uL (4.35-5.85); RED CELL DISTRIBUTION WIDTH 14.4 % (10.0-14.5); WHITE BLOOD COUNT 2.6 10^3/uL (4.3-11.0)
[2016-12-07 10:31] LABS: PEP REPORT SEE PATH REPORT
[2016-12-07 10:50] LABS: ANION GAP 11 MMOL/L (5-14); CARBON DIOXIDE 22 MMOL/L (21-32); CHLORIDE 102 MMOL/L (98-107); POTASSIUM 3.6 MMOL/L (3.6-5.0); SODIUM 135 MMOL/L (135-145)
[2016-12-07 10:51] LABS: ALANINE AMINOTRANSFERASE 27 U/L (0-55); ALBUMIN 4.4 GM/DL (3.2-4.5); ASPARTATE AMINO TRANSFERASE 24 U/L (5-34); BILIRUBIN,TOTAL 1.2 MG/DL (0.1-1.0); BLOOD UREA NITROGEN 18 MG/DL (7-18); BUN/CREATININE RATIO 16; CALCIUM 9.6 MG/DL (8.5-10.1); CREATININE SERUM 1.14 MG/DL (0.60-1.30); GFR ESTIMATED > 60; GLUCOSE 112 MG/DL (70-105); TOTAL PROTEIN 7.4 GM/DL (6.4-8.2)
[2016-12-08 02:45] LABS: IMMUNOGLOBULIN IGA 152 mg/dL (71-263); IMMUNOGLOBULIN IGG 1092 mg/dL (672-1680); LIGHT CHAIN KAPPA SERUM QUANT 26.74 mg/L (3.30-19.40); LIGHT CHAIN LAMBDA SERUM QUANT 18.16 mg/L (5.71-26.30)
[2016-12-08 09:50] LABS: IMMUNOGLOBULIN IGM 25 mg/dL (47-209)
[2016-12-10 13:47] LABS: CLIN PATHOLOGY REPORT FOOTNOTE
[2016-12-10 13:48] LABS: SERUM PROTEIN ELEC DETAIL L-17-0011142
[2017-01-04 09:37] LABS: BASOPHILS # (AUTO) 0.1 10^3/uL (0.0-0.1); BASOPHILS % (AUTO) 3 % (0-10); EOSINOPHILS # (AUTO) 0.2 10^3/uL (0.0-0.3); EOSINOPHILS % (AUTO) 8 % (0-10); LYMPHOCYTES # (AUTO) 1.1 X 10^3 (1.0-4.0); LYMPHOCYTES % (AUTO) 38 % (12-44); MEAN CORPUSCULAR HEMOGLOBIN 35 PG (25-34); MEAN CORPUSCULAR HGB CONC 35 G/DL (32-36); MEAN CORPUSCULAR VOLUME 100 FL (80-99); MEAN PLATELET VOLUME 9.8 FL (7.4-10.4); MONOCYTES # (AUTO) 0.6 X 10^3 (0.0-1.0); MONOCYTES % (AUTO) 19 % (0-12); NEUTROPHILS # (AUTO) 0.9 X 10^3 (1.8-7.8); NEUTROPHILS % (AUTO) 32 % (42-75); PLATELET COUNT 155 10^3/uL (130-400); RED BLOOD COUNT 4.02 10^6/uL (4.35-5.85); WHITE BLOOD COUNT 2.9 10^3/uL (4.3-11.0)
[2017-01-04 09:39] LABS: PEP REPORT SEE PATH REPORT
[2017-01-04 10:06] LABS: ALANINE AMINOTRANSFERASE 30 U/L (0-55); ALBUMIN 4.1 GM/DL (3.2-4.5); ANION GAP 9 MMOL/L (5-14); ASPARTATE AMINO TRANSFERASE 26 U/L (5-34); BILIRUBIN,TOTAL 1.1 MG/DL (0.1-1.0); BLOOD UREA NITROGEN 13 MG/DL (7-18); BUN/CREATININE RATIO 13; CALCIUM 9.1 MG/DL (8.5-10.1); CARBON DIOXIDE 23 MMOL/L (21-32); CHLORIDE 103 MMOL/L (98-107); CREATININE SERUM 0.99 MG/DL (0.60-1.30); GFR ESTIMATED > 60; GLUCOSE 105 MG/DL (70-105); POTASSIUM 3.4 MMOL/L (3.6-5.0); SODIUM 135 MMOL/L (135-145); TOTAL PROTEIN 7.2 GM/DL (6.4-8.2)
[2017-01-05 02:50] LABS: IMMUNOGLOBULIN IGA 168 mg/dL (71-263); IMMUNOGLOBULIN IGG 1070 mg/dL (672-1680); LIGHT CHAIN KAPPA SERUM QUANT 24.02 mg/L (3.30-19.40); LIGHT CHAIN LAMBDA SERUM QUANT 15.89 mg/L (5.71-26.30)
[2017-01-05 06:41] LABS: IMMUNOGLOBULIN IGM 25 mg/dL (47-209)
[2017-01-06 15:36] LABS: CLIN PATHOLOGY REPORT FOOTNOTE
[2017-01-06 15:37] LABS: SERUM PROTEIN ELEC DETAIL L-17-0012479
== END 2017-01-14 | disposition home or self-care (01) ==
LOC: ONC 09:09
PROVIDERS: ATTEND Internal Medicine Hematology & Oncology
DX: C90.00 Multiple myeloma not having achieved remission (principal); D47.2 Monoclonal gammopathy; I82.5Z2 Chronic embolism and thrombosis of unspecified deep veins of left distal lower extremity; I10 Essential (primary) hypertension; R19.7 Diarrhea, unspecified; Z79.01 Long term (current) use of anticoagulants; Z79.899 Other long term (current) drug therapy; Z94.81 Bone marrow transplant status
CPT/HCPCS: 36415; 80053; 82232; 82784; 83883; 84155; 84165; 85025; 96365

== ENCOUNTER 2017-04-25 08:49 | Outpatient (RCR) | payer BC, OTHER ==
[2017-02-01 09:37] LABS: BASOPHILS # (AUTO) 0.1 10^3/uL (0.0-0.1); BASOPHILS % (AUTO) 2 % (0-10); EOSINOPHILS # (AUTO) 0.2 10^3/uL (0.0-0.3); EOSINOPHILS % (AUTO) 6 % (0-10); HEMATOCRIT 42 % (40-54); HEMOGLOBIN 14.6 G/DL (13.3-17.7); LYMPHOCYTES # (AUTO) 1.1 X 10^3 (1.0-4.0); LYMPHOCYTES % (AUTO) 39 % (12-44); MEAN CORPUSCULAR HEMOGLOBIN 35 PG (25-34); MEAN CORPUSCULAR HGB CONC 35 G/DL (32-36); MEAN CORPUSCULAR VOLUME 100 FL (80-99); MONOCYTES # (AUTO) 0.4 X 10^3 (0.0-1.0); MONOCYTES % (AUTO) 13 % (0-12); NEUTROPHILS # (AUTO) 1.2 X 10^3 (1.8-7.8); NEUTROPHILS % (AUTO) 40 % (42-75); PLATELET COUNT 152 10^3/uL (130-400); RED CELL DISTRIBUTION WIDTH 12.9 % (10.0-14.5); WHITE BLOOD COUNT 2.9 10^3/uL (4.3-11.0)
[2017-02-01 09:57] LABS: ALANINE AMINOTRANSFERASE 31 U/L (0-55); ALBUMIN 4.2 GM/DL (3.2-4.5); ALKALINE PHOSPHATASE 44 U/L (40-136); BILIRUBIN,TOTAL 0.9 MG/DL (0.1-1.0); BUN/CREATININE RATIO 12; CALCIUM 9.4 MG/DL (8.5-10.1); CARBON DIOXIDE 24 MMOL/L (21-32); CHLORIDE 103 MMOL/L (98-107); CREATININE SERUM 0.97 MG/DL (0.60-1.30); GFR ESTIMATED > 60; GLUCOSE 112 MG/DL (70-105); POTASSIUM 3.5 MMOL/L (3.6-5.0); SODIUM 138 MMOL/L (135-145); TOTAL PROTEIN 7.1 GM/DL (6.4-8.2)
[2017-02-28 09:09] LABS: BASOPHILS # (AUTO) 0.1 10^3/uL (0.0-0.1); BASOPHILS % (AUTO) 3 % (0-10); EOSINOPHILS # (AUTO) 0.2 10^3/uL (0.0-0.3); EOSINOPHILS % (AUTO) 7 % (0-10); HEMATOCRIT 41 % (40-54); HEMOGLOBIN 14.4 G/DL (13.3-17.7); LYMPHOCYTES # (AUTO) 1.1 X 10^3 (1.0-4.0); LYMPHOCYTES % (AUTO) 43 % (12-44); MEAN CORPUSCULAR HEMOGLOBIN 35 PG (25-34); MEAN CORPUSCULAR HGB CONC 35 G/DL (32-36); MEAN CORPUSCULAR VOLUME 101 FL (80-99); MEAN PLATELET VOLUME 9.7 FL (7.4-10.4); MONOCYTES # (AUTO) 0.3 X 10^3 (0.0-1.0); MONOCYTES % (AUTO) 13 % (0-12); NEUTROPHILS # (AUTO) 0.9 X 10^3 (1.8-7.8); NEUTROPHILS % (AUTO) 35 % (42-75); PLATELET COUNT 162 10^3/uL (130-400); RED BLOOD COUNT 4.11 10^6/uL (4.35-5.85); RED CELL DISTRIBUTION WIDTH 12.8 % (10.0-14.5); WHITE BLOOD COUNT 2.6 10^3/uL (4.3-11.0)
[2017-02-28 09:23] LABS: ALANINE AMINOTRANSFERASE 27 U/L (0-55); ALBUMIN 4.3 GM/DL (3.2-4.5); ALKALINE PHOSPHATASE 42 U/L (40-136); BILIRUBIN,TOTAL 1.1 MG/DL (0.1-1.0); BUN/CREATININE RATIO 12; CALCIUM 9.5 MG/DL (8.5-10.1); CARBON DIOXIDE 27 MMOL/L (21-32); CHLORIDE 99 MMOL/L (98-107); CREATININE SERUM 1.06 MG/DL (0.60-1.30); GFR ESTIMATED > 60; GLUCOSE 134 MG/DL (70-105); POTASSIUM 3.6 MMOL/L (3.6-5.0); SODIUM 135 MMOL/L (135-145); TOTAL PROTEIN 7.2 GM/DL (6.4-8.2)
== END 2017-05-02 | disposition home or self-care (01) ==
LOC: ONC 08:49
PROVIDERS: ATTEND Internal Medicine Hematology & Oncology
DX: C90.00 Multiple myeloma not having achieved remission (principal); D47.2 Monoclonal gammopathy; I82.5Z2 Chronic embolism and thrombosis of unspecified deep veins of left distal lower extremity; I10 Essential (primary) hypertension; Z79.01 Long term (current) use of anticoagulants; Z79.899 Other long term (current) drug therapy; Z94.81 Bone marrow transplant status
CPT/HCPCS: 36415; 80053; 82232; 82784; 83883; 84155; 84165; 85025; 96360; 96365; 96367

== ENCOUNTER 2017-06-21 08:58 | Outpatient (RCR) | payer BC, OTHER ==
[2017-05-24 11:31] LABS: BASOPHILS # (AUTO) 0.1 10^3/uL (0.0-0.1); BASOPHILS % (AUTO) 3 % (0-10); EOSINOPHILS # (AUTO) 0.1 10^3/uL (0.0-0.3); EOSINOPHILS % (AUTO) 6 % (0-10); HEMATOCRIT 41 % (40-54); HEMOGLOBIN 14.4 G/DL (13.3-17.7); LYMPHOCYTES % (AUTO) 42 % (12-44); MEAN CORPUSCULAR HEMOGLOBIN 35 PG (25-34); MEAN CORPUSCULAR HGB CONC 35 G/DL (32-36); MEAN CORPUSCULAR VOLUME 99 FL (80-99); MEAN PLATELET VOLUME 10.2 FL (7.4-10.4); MONOCYTES # (AUTO) 0.4 X 10^3 (0.0-1.0); MONOCYTES % (AUTO) 15 % (0-12); NEUTROPHILS # (AUTO) 0.8 X 10^3 (1.8-7.8); NEUTROPHILS % (AUTO) 34 % (42-75); PLATELET COUNT 142 10^3/uL (130-400); RED BLOOD COUNT 4.14 10^6/uL (4.35-5.85); RED CELL DISTRIBUTION WIDTH 12.8 % (10.0-14.5); WHITE BLOOD COUNT 2.4 10^3/uL (4.3-11.0)
[2017-05-24 11:54] LABS: ALANINE AMINOTRANSFERASE 28 U/L (0-55); ALKALINE PHOSPHATASE 37 U/L (40-136); BUN/CREATININE RATIO 17; CARBON DIOXIDE 21 MMOL/L (21-32); CHLORIDE 102 MMOL/L (98-107); GFR ESTIMATED > 60; GLUCOSE 128 MG/DL (70-105); POTASSIUM 3.6 MMOL/L (3.6-5.0); SODIUM 135 MMOL/L (135-145); TOTAL PROTEIN 7.2 GM/DL (6.4-8.2)
== END 2017-07-18 15:37 | disposition home or self-care (01) ==
LOC: ONC 08:58
PROVIDERS: ATTEND Internal Medicine Hematology & Oncology
DX: C90.00 Multiple myeloma not having achieved remission (principal); D47.2 Monoclonal gammopathy; I82.5Z2 Chronic embolism and thrombosis of unspecified deep veins of left distal lower extremity; I10 Essential (primary) hypertension; R19.7 Diarrhea, unspecified; Z79.01 Long term (current) use of anticoagulants; Z79.899 Other long term (current) drug therapy; Z94.81 Bone marrow transplant status
CPT/HCPCS: 36415; 80053; 82784; 83883; 85025; 96365

== ENCOUNTER 2017-10-11 08:18 | Outpatient (RCR) | payer BC ==
[2017-07-19 10:06] LABS: BASOPHILS # (AUTO) 0.1 10^3/uL (0.0-0.1); BASOPHILS % (AUTO) 2 % (0-10); EOSINOPHILS # (AUTO) 0.2 10^3/uL (0.0-0.3); EOSINOPHILS % (AUTO) 5 % (0-10); HEMATOCRIT 42 % (40-54); HEMOGLOBIN 14.9 G/DL (13.3-17.7); LYMPHOCYTES # (AUTO) 1.1 X 10^3 (1.0-4.0); LYMPHOCYTES % (AUTO) 41 % (12-44); MEAN CORPUSCULAR HEMOGLOBIN 35 PG (25-34); MEAN CORPUSCULAR HGB CONC 35 G/DL (32-36); MEAN CORPUSCULAR VOLUME 98 FL (80-99); MEAN PLATELET VOLUME 10.2 FL (7.4-10.4); MONOCYTES # (AUTO) 0.4 X 10^3 (0.0-1.0); MONOCYTES % (AUTO) 15 % (0-12); NEUTROPHILS % (AUTO) 37 % (42-75); PLATELET COUNT 150 10^3/uL (130-400); RED BLOOD COUNT 4.31 10^6/uL (4.35-5.85); WHITE BLOOD COUNT 2.8 10^3/uL (4.3-11.0)
[2017-07-19 10:23] LABS: ALANINE AMINOTRANSFERASE 28 U/L (0-55); ALBUMIN 4.2 GM/DL (3.2-4.5); ALKALINE PHOSPHATASE 39 U/L (40-136); BILIRUBIN,TOTAL 0.7 MG/DL (0.1-1.0); BUN/CREATININE RATIO 14; CALCIUM 9.4 MG/DL (8.5-10.1); CARBON DIOXIDE 29 MMOL/L (21-32); CHLORIDE 104 MMOL/L (98-107); CREATININE SERUM 1.03 MG/DL (0.60-1.30); GFR ESTIMATED > 60; GLUCOSE 149 MG/DL (70-105); POTASSIUM 3.3 MMOL/L (3.6-5.0); SODIUM 138 MMOL/L (135-145); TOTAL PROTEIN 6.9 GM/DL (6.4-8.2)
[2017-10-11 08:47] LABS: BASOPHILS # (AUTO) 0.1 10^3/uL (0.0-0.1); BASOPHILS % (AUTO) 2 % (0-10); EOSINOPHILS # (AUTO) 0.2 10^3/uL (0.0-0.3); EOSINOPHILS % (AUTO) 6 % (0-10); HEMATOCRIT 40 % (40-54); HEMOGLOBIN 14.1 G/DL (13.3-17.7); LYMPHOCYTES # (AUTO) 1.2 X 10^3 (1.0-4.0); LYMPHOCYTES % (AUTO) 42 % (12-44); MEAN CORPUSCULAR HEMOGLOBIN 35 PG (25-34); MEAN CORPUSCULAR HGB CONC 35 G/DL (32-36); MEAN CORPUSCULAR VOLUME 100 FL (80-99); MEAN PLATELET VOLUME 9.9 FL (7.4-10.4); MONOCYTES # (AUTO) 0.5 X 10^3 (0.0-1.0); MONOCYTES % (AUTO) 16 % (0-12); NEUTROPHILS % (AUTO) 34 % (42-75); PLATELET COUNT 161 10^3/uL (130-400); RED BLOOD COUNT 3.99 10^6/uL (4.35-5.85); RED CELL DISTRIBUTION WIDTH 13.8 % (10.0-14.5); WHITE BLOOD COUNT 2.9 10^3/uL (4.3-11.0)
[2017-10-11 09:27] LABS: ALANINE AMINOTRANSFERASE 25 U/L (0-55); ALBUMIN 4.2 GM/DL (3.2-4.5); ALKALINE PHOSPHATASE 41 U/L (40-136); BILIRUBIN,TOTAL 0.8 MG/DL (0.1-1.0); BUN/CREATININE RATIO 13; CALCIUM 9.3 MG/DL (8.5-10.1); CARBON DIOXIDE 23 MMOL/L (21-32); CHLORIDE 104 MMOL/L (98-107); CREATININE SERUM 0.89 MG/DL (0.60-1.30); GFR ESTIMATED > 60; GLUCOSE 109 MG/DL (70-105); POTASSIUM 3.7 MMOL/L (3.6-5.0); SODIUM 138 MMOL/L (135-145); TOTAL PROTEIN 7.2 GM/DL (6.4-8.2)
--- NOTE | 2017-10-11 09:47 | Diagnostic Imaging Report ---
INDICATION: Increasing right hip pain. Time of exam 9:39 AM 2 views right hip were obtained. There is normal femoral acetabular alignment. Joint spaces well-maintained. The femoral head and neck appear intact. No fractures are seen. IMPRESSION: No acute bony abnormality is detected. Dictated by: Dictated on workstation # [id number]
--- NOTE | 2017-10-11 09:50 | Diagnostic Imaging Report ---
INDICATION: Increasing hip pain. Time of exam: 9:45 AM Multiple views of the lumbar spine were obtained. There are kyphoplasty changes at the L4 level. Remaining lumbar vertebra show normal stature. No acute compression fracture seen. There is some degenerative disc disease at L3-4 and L5-S1 levels. IMPRESSION: Kyphoplasty changes at L4. No acute bony abnormality is detected. Dictated by: Dictated on workstation # [id number]
== END 2017-10-17 | disposition home or self-care (01) ==
LOC: ONC 08:18
PROVIDERS: ATTEND Internal Medicine Hematology & Oncology
DX: C90.00 Multiple myeloma not having achieved remission (principal); D47.2 Monoclonal gammopathy; I82.5Z2 Chronic embolism and thrombosis of unspecified deep veins of left distal lower extremity; I10 Essential (primary) hypertension; Z79.01 Long term (current) use of anticoagulants; Z79.899 Other long term (current) drug therapy; Z94.81 Bone marrow transplant status
CPT/HCPCS: 36415; 72110; 73502; 80053; 82232; 83883; 84155; 84165; 85025; 96365

== ENCOUNTER 2018-01-03 08:30 | Outpatient (RCR) | payer BC ==
[2017-12-06 08:47] LABS: BASOPHILS # (AUTO) 0.1 10^3/uL (0.0-0.1); BASOPHILS % (AUTO) 3 % (0-10); EOSINOPHILS # (AUTO) 0.2 10^3/uL (0.0-0.3); EOSINOPHILS % (AUTO) 5 % (0-10); HEMATOCRIT 41 % (40-54); HEMOGLOBIN 14.1 G/DL (13.3-17.7); LYMPHOCYTES # (AUTO) 1.3 X 10^3 (1.0-4.0); LYMPHOCYTES % (AUTO) 41 % (12-44); MEAN CORPUSCULAR HEMOGLOBIN 35 PG (25-34); MEAN CORPUSCULAR HGB CONC 35 G/DL (32-36); MEAN CORPUSCULAR VOLUME 101 FL (80-99); MONOCYTES # (AUTO) 0.5 X 10^3 (0.0-1.0); MONOCYTES % (AUTO) 15 % (0-12); NEUTROPHILS # (AUTO) 1.1 X 10^3 (1.8-7.8); NEUTROPHILS % (AUTO) 36 % (42-75); PLATELET COUNT 152 10^3/uL (130-400); RED BLOOD COUNT 4.01 10^6/uL (4.35-5.85); RED CELL DISTRIBUTION WIDTH 13.5 % (10.0-14.5); WHITE BLOOD COUNT 3.1 10^3/uL (4.3-11.0)
[2017-12-06 09:07] LABS: ALANINE AMINOTRANSFERASE 31 U/L (0-55); ALBUMIN 4.2 GM/DL (3.2-4.5); ALKALINE PHOSPHATASE 47 U/L (40-136); BILIRUBIN,TOTAL 1.1 MG/DL (0.1-1.0); BUN/CREATININE RATIO 12; CARBON DIOXIDE 24 MMOL/L (21-32); CHLORIDE 104 MMOL/L (98-107); CREATININE SERUM 1.06 MG/DL (0.60-1.30); GFR ESTIMATED > 60; GLUCOSE 108 MG/DL (70-105); POTASSIUM 3.6 MMOL/L (3.6-5.0); SODIUM 136 MMOL/L (135-145); TOTAL PROTEIN 7.1 GM/DL (6.4-8.2)
== END 2018-02-06 | disposition home or self-care (01) ==
LOC: ONC 08:30
PROVIDERS: ATTEND Internal Medicine Hematology & Oncology
DX: C90.00 Multiple myeloma not having achieved remission (principal); D47.2 Monoclonal gammopathy; I82.5Z2 Chronic embolism and thrombosis of unspecified deep veins of left distal lower extremity; I10 Essential (primary) hypertension; Z79.01 Long term (current) use of anticoagulants; Z79.899 Other long term (current) drug therapy; Z94.81 Bone marrow transplant status
CPT/HCPCS: 36415; 80053; 82232; 83883; 84155; 84165; 85025; 96365

== ENCOUNTER 2018-04-19 14:45 | Outpatient (RCR) | payer BC ==
[2018-02-13 09:00] LABS: BASOPHILS # (AUTO) 0.1 10^3/uL (0.0-0.1); BASOPHILS % (AUTO) 3 % (0-10); EOSINOPHILS # (AUTO) 0.2 10^3/uL (0.0-0.3); EOSINOPHILS % (AUTO) 7 % (0-10); HEMATOCRIT 41 % (40-54); HEMOGLOBIN 14.1 G/DL (13.3-17.7); LYMPHOCYTES # (AUTO) 1.2 X 10^3 (1.0-4.0); LYMPHOCYTES % (AUTO) 40 % (12-44); MEAN CORPUSCULAR HEMOGLOBIN 35 PG (25-34); MEAN CORPUSCULAR HGB CONC 35 G/DL (32-36); MEAN CORPUSCULAR VOLUME 101 FL (80-99); MEAN PLATELET VOLUME 9.9 FL (7.4-10.4); MONOCYTES # (AUTO) 0.5 X 10^3 (0.0-1.0); MONOCYTES % (AUTO) 16 % (0-12); NEUTROPHILS % (AUTO) 34 % (42-75); PLATELET COUNT 154 10^3/uL (130-400); RED CELL DISTRIBUTION WIDTH 13.5 % (10.0-14.5); WHITE BLOOD COUNT 2.9 10^3/uL (4.3-11.0)
[2018-02-13 09:20] LABS: ALANINE AMINOTRANSFERASE 32 U/L (0-55); ALBUMIN 4.3 GM/DL (3.2-4.5); ALKALINE PHOSPHATASE 39 U/L (40-136); BILIRUBIN,TOTAL 0.8 MG/DL (0.1-1.0); BUN/CREATININE RATIO 11; CALCIUM 9.6 MG/DL (8.5-10.1); CARBON DIOXIDE 24 MMOL/L (21-32); CHLORIDE 104 MMOL/L (98-107); GFR ESTIMATED > 60; GLUCOSE 113 MG/DL (70-105); POTASSIUM 3.9 MMOL/L (3.6-5.0); SODIUM 137 MMOL/L (135-145); TOTAL PROTEIN 7.2 GM/DL (6.4-8.2)
[2018-04-19 15:16] LABS: BASOPHILS # (AUTO) 0.1 10^3/uL (0.0-0.1); BASOPHILS % (AUTO) 2 % (0-10); EOSINOPHILS # (AUTO) 0.1 10^3/uL (0.0-0.3); EOSINOPHILS % (AUTO) 4 % (0-10); HEMATOCRIT 42 % (40-54); HEMOGLOBIN 14.4 G/DL (13.3-17.7); LYMPHOCYTES # (AUTO) 1.3 X 10^3 (1.0-4.0); LYMPHOCYTES % (AUTO) 37 % (12-44); MEAN CORPUSCULAR HEMOGLOBIN 34 PG (25-34); MEAN CORPUSCULAR HGB CONC 34 G/DL (32-36); MEAN CORPUSCULAR VOLUME 100 FL (80-99); MEAN PLATELET VOLUME 9.7 FL (7.4-10.4); MONOCYTES # (AUTO) 0.5 X 10^3 (0.0-1.0); MONOCYTES % (AUTO) 15 % (0-12); NEUTROPHILS # (AUTO) 1.5 X 10^3 (1.8-7.8); NEUTROPHILS % (AUTO) 43 % (42-75); PLATELET COUNT 150 10^3/uL (130-400); RED CELL DISTRIBUTION WIDTH 13.3 % (10.0-14.5); WHITE BLOOD COUNT 3.5 10^3/uL (4.3-11.0)
[2018-04-19 15:42] LABS: ALANINE AMINOTRANSFERASE 38 U/L (0-55); ALBUMIN 4.3 GM/DL (3.2-4.5); ALKALINE PHOSPHATASE 50 U/L (40-136); BILIRUBIN,TOTAL 0.8 MG/DL (0.1-1.0); BUN/CREATININE RATIO 13; CALCIUM 9.2 MG/DL (8.5-10.1); CARBON DIOXIDE 23 MMOL/L (21-32); CHLORIDE 103 MMOL/L (98-107); CREATININE SERUM 1.22 MG/DL (0.60-1.30); GFR ESTIMATED > 60; GLUCOSE 104 MG/DL (70-105); POTASSIUM 3.6 MMOL/L (3.6-5.0); SODIUM 136 MMOL/L (135-145); TOTAL PROTEIN 7.2 GM/DL (6.4-8.2)
== END 2018-05-14 | disposition home or self-care (01) ==
LOC: ONC 14:45
PROVIDERS: ATTEND Internal Medicine Hematology & Oncology
DX: C90.00 Multiple myeloma not having achieved remission (principal); D47.2 Monoclonal gammopathy; I82.5Z2 Chronic embolism and thrombosis of unspecified deep veins of left distal lower extremity; I10 Essential (primary) hypertension; Z79.01 Long term (current) use of anticoagulants; Z79.899 Other long term (current) drug therapy; Z94.81 Bone marrow transplant status
CPT/HCPCS: 36415; 80053; 82232; 83883; 85025; 96365; 99213

== ENCOUNTER 2018-07-11 08:50 | Outpatient (RCR) | payer MEDICARE ==
[~2018-07-11 08:50] MED LIST changes: -ZOLEDRONIC ACID (CANCER CTR) 3 MG in NS (IVPB) CANCER CENTER 100 ML IV SCH
[2018-07-11 09:22] LABS: BASOPHILS # (AUTO) 0.1 10^3/uL (0.0-0.1); BASOPHILS % (AUTO) 3 % (0-10); EOSINOPHILS # (AUTO) 0.1 10^3/uL (0.0-0.3); EOSINOPHILS % (AUTO) 5 % (0-10); HEMATOCRIT 41 % (40-54); HEMOGLOBIN 14.2 G/DL (13.3-17.7); LYMPHOCYTES % (AUTO) 41 % (12-44); MEAN CORPUSCULAR HEMOGLOBIN 35 PG (25-34); MEAN CORPUSCULAR HGB CONC 34 G/DL (32-36); MEAN CORPUSCULAR VOLUME 101 FL (80-99); MONOCYTES # (AUTO) 0.4 X 10^3 (0.0-1.0); MONOCYTES % (AUTO) 17 % (0-12); NEUTROPHILS # (AUTO) 0.9 X 10^3 (1.8-7.8); NEUTROPHILS % (AUTO) 35 % (42-75); PLATELET COUNT 136 10^3/uL (130-400); RED CELL DISTRIBUTION WIDTH 13.3 % (10.0-14.5); WHITE BLOOD COUNT 2.6 10^3/uL (4.3-11.0)
[2018-07-11 09:47] LABS: ALANINE AMINOTRANSFERASE 34 U/L (0-55); ALBUMIN 4.1 GM/DL (3.2-4.5); ALKALINE PHOSPHATASE 44 U/L (40-136); BUN/CREATININE RATIO 11; CALCIUM 9.2 MG/DL (8.5-10.1); CARBON DIOXIDE 25 MMOL/L (21-32); CHLORIDE 102 MMOL/L (98-107); CREATININE SERUM 1.16 MG/DL (0.60-1.30); GFR ESTIMATED > 60; GLUCOSE 112 MG/DL (70-105); POTASSIUM 3.7 MMOL/L (3.6-5.0); SODIUM 137 MMOL/L (135-145); TOTAL PROTEIN 6.6 GM/DL (6.4-8.2)
== END 2018-08-10 15:50 | disposition home or self-care (01) ==
LOC: ONC 08:50
PROVIDERS: ATTEND Internal Medicine Hematology & Oncology
DX: C90.00 Multiple myeloma not having achieved remission (principal); D47.2 Monoclonal gammopathy; I82.5Z2 Chronic embolism and thrombosis of unspecified deep veins of left distal lower extremity; I10 Essential (primary) hypertension; Z79.01 Long term (current) use of anticoagulants; Z79.899 Other long term (current) drug therapy; Z94.81 Bone marrow transplant status
CPT/HCPCS: 80053; 82784; 83883; 84155; 84165; 85025; 99213

== ENCOUNTER 2019-03-21 08:33 | Outpatient (RCR) | payer MEDICARE ==
[2018-12-24 09:53] LABS: BASOPHILS % (AUTO) 1 % (0-10); EOSINOPHILS % (AUTO) 1 % (0-10); HEMATOCRIT 43 % (40-54); HEMOGLOBIN 15.1 G/DL (13.3-17.7); LYMPHOCYTES # (AUTO) 1.1 X 10^3 (1.0-4.0); LYMPHOCYTES % (AUTO) 46 % (12-44); MEAN CORPUSCULAR HEMOGLOBIN 35 PG (25-34); MEAN CORPUSCULAR HGB CONC 35 G/DL (32-36); MEAN CORPUSCULAR VOLUME 102 FL (80-99); MEAN PLATELET VOLUME 9.8 FL (7.4-10.4); MONOCYTES # (AUTO) 0.2 X 10^3 (0.0-1.0); MONOCYTES % (AUTO) 10 % (0-12); NEUTROPHILS % (AUTO) 42 % (42-75); PLATELET COUNT 179 10^3/uL (130-400); WHITE BLOOD COUNT 2.5 10^3/uL (4.3-11.0)
[2018-12-24 10:17] LABS: ALANINE AMINOTRANSFERASE 25 U/L (0-55); ALBUMIN 4.2 GM/DL (3.2-4.5); ALKALINE PHOSPHATASE 42 U/L (40-136); BILIRUBIN,TOTAL 0.8 MG/DL (0.1-1.0); BUN/CREATININE RATIO 11; CALCIUM 9.3 MG/DL (8.5-10.1); CARBON DIOXIDE 25 MMOL/L (21-32); CHLORIDE 101 MMOL/L (98-107); CREATININE SERUM 1.14 MG/DL (0.60-1.30); GFR ESTIMATED > 60; GLUCOSE 115 MG/DL (70-105); POTASSIUM 4.2 MMOL/L (3.6-5.0); SODIUM 135 MMOL/L (135-145); TOTAL PROTEIN 7.1 GM/DL (6.4-8.2)
[~2019-03-21 08:33] MED LIST changes: -ENAL5TAB PO; +ENLP5T PO
[2019-03-21 08:57] LABS: BASOPHILS # (AUTO) 0.1 10^3/uL (0.0-0.1); BASOPHILS % (AUTO) 2 % (0-10); EOSINOPHILS % (AUTO) 1 % (0-10); HEMATOCRIT 42 % (40-54); HEMOGLOBIN 14.3 G/DL (13.3-17.7); LYMPHOCYTES # (AUTO) 1.4 X 10^3 (1.0-4.0); LYMPHOCYTES % (AUTO) 45 % (12-44); MEAN CORPUSCULAR HEMOGLOBIN 35 PG (25-34); MEAN CORPUSCULAR HGB CONC 34 G/DL (32-36); MEAN CORPUSCULAR VOLUME 101 FL (80-99); MEAN PLATELET VOLUME 9.3 FL (7.4-10.4); MONOCYTES # (AUTO) 0.4 X 10^3 (0.0-1.0); MONOCYTES % (AUTO) 14 % (0-12); NEUTROPHILS # (AUTO) 1.2 X 10^3 (1.8-7.8); NEUTROPHILS % (AUTO) 38 % (42-75); PLATELET COUNT 173 10^3/uL (130-400); RED CELL DISTRIBUTION WIDTH 13.3 % (10.0-14.5); WHITE BLOOD COUNT 3.1 10^3/uL (4.3-11.0)
[2019-03-21 09:14] LABS: ALANINE AMINOTRANSFERASE 34 U/L (0-55); ALBUMIN 4.1 GM/DL (3.2-4.5); ALKALINE PHOSPHATASE 41 U/L (40-136); BILIRUBIN,TOTAL 0.5 MG/DL (0.1-1.0); BUN/CREATININE RATIO 14; CALCIUM 9.1 MG/DL (8.5-10.1); CARBON DIOXIDE 23 MMOL/L (21-32); CHLORIDE 106 MMOL/L (98-107); CREATININE SERUM 1.15 MG/DL (0.60-1.30); GFR ESTIMATED > 60; GLUCOSE 116 MG/DL (70-105); POTASSIUM 4.2 MMOL/L (3.6-5.0); SODIUM 139 MMOL/L (135-145); TOTAL PROTEIN 6.8 GM/DL (6.4-8.2)
== END 2019-03-24 | disposition home or self-care (01) ==
LOC: ONC 08:33
PROVIDERS: ATTEND Internal Medicine Hematology & Oncology
DX: C90.00 Multiple myeloma not having achieved remission (principal); D47.2 Monoclonal gammopathy; I82.5Z2 Chronic embolism and thrombosis of unspecified deep veins of left distal lower extremity; I10 Essential (primary) hypertension; Z79.01 Long term (current) use of anticoagulants; Z79.899 Other long term (current) drug therapy; Z94.81 Bone marrow transplant status
CPT/HCPCS: 36415; 80053; 82232; 82784; 83883; 84155; 84165; 85025; 99213

== ENCOUNTER 2019-06-18 12:13 | Outpatient (RCR) | payer MEDICARE ==
[~2019-06-18 12:13] MED LIST changes: +FLU QUADRIvalent (5+ YOA) 2019-2020 (Cancer Ctr) 0.5 ML IM ONE
[2019-06-18 12:27] LABS: BASOPHILS # (AUTO) 0.1 10^3/uL (0.0-0.1); BASOPHILS % (AUTO) 2 % (0-10); EOSINOPHILS # (AUTO) 0.1 10^3/uL (0.0-0.3); EOSINOPHILS % (AUTO) 2 % (0-10); HEMATOCRIT 43 % (40-54); HEMOGLOBIN 14.7 G/DL (13.3-17.7); LYMPHOCYTES # (AUTO) 1.3 X 10^3 (1.0-4.0); LYMPHOCYTES % (AUTO) 38 % (12-44); MEAN CORPUSCULAR HEMOGLOBIN 34 PG (25-34); MEAN CORPUSCULAR HGB CONC 34 G/DL (32-36); MEAN CORPUSCULAR VOLUME 99 FL (80-99); MEAN PLATELET VOLUME 9.4 FL (7.4-10.4); MONOCYTES # (AUTO) 0.5 X 10^3 (0.0-1.0); MONOCYTES % (AUTO) 14 % (0-12); NEUTROPHILS # (AUTO) 1.5 X 10^3 (1.8-7.8); NEUTROPHILS % (AUTO) 44 % (42-75); PLATELET COUNT 179 10^3/uL (130-400); RED CELL DISTRIBUTION WIDTH 13.5 % (10.0-14.5); WHITE BLOOD COUNT 3.3 10^3/uL (4.3-11.0)
[2019-06-18 12:46] LABS: ALBUMIN 4.3 GM/DL (3.2-4.5); BILIRUBIN,TOTAL 0.9 MG/DL (0.1-1.0); CALCIUM 9.7 MG/DL (8.5-10.1); CREATININE SERUM 1.28 MG/DL (0.60-1.30); POTASSIUM 3.9 MMOL/L (3.6-5.0)
== END 2019-06-24 | disposition home or self-care (01) ==
LOC: ONC 12:13
PROVIDERS: ATTEND Internal Medicine Hematology & Oncology
DX: C90.00 Multiple myeloma not having achieved remission (principal); D47.2 Monoclonal gammopathy; I82.5Z2 Chronic embolism and thrombosis of unspecified deep veins of left distal lower extremity; I10 Essential (primary) hypertension; Z79.01 Long term (current) use of anticoagulants; Z79.899 Other long term (current) drug therapy; Z94.81 Bone marrow transplant status
CPT/HCPCS: 80053; 82232; 82784; 83883; 84155; 84165; 85025; 90471

== ENCOUNTER → 2019-06-18 | Outpatient (CLI) | payer MEDICARE ==
--- NOTE | 2019-06-18 13:31 | Diagnostic Imaging Report ---
INDICATION: Screening for osteoporosis. TECHNIQUE: The bone mineral density of the hips and spine was measured. COMPARISON: There are no prior studies available for comparison. FINDINGS: The total T-score for the spine is -1.5. This finding does indicate osteopenia. It should be noted that the T-score for L2 is -2.8. This finding does fall within the range of osteoporosis. The total T-score for the both hips is -1.7. These values indicate osteopenia. The T-score for the right femoral neck is -2.1 and this also falls within the range of osteopenia. However, the T score for the left femoral neck is 2.5 and this does indicate osteoporosis. AP Spine L1-L4: [BMD (g/cm2): 1.060] [T-Score: -1.5] [Z-Score: -1.25] [BMD Previous: NA] [BMD % Change: NA] LT Hip Neck: [BMD (g/cm2): 0.750] [T-Score: -2.5] [Z-Score: -1.8] LT Hip Total: [BMD (g/cm2):0.855] [T-Score:-1.7] [Z-Score: -1.4] [BMD Previous: NA] [BMD % Change: NA] RT Hip Neck: [BMD (g/cm2):0.803] [T-Score:-2.1] [Z-Score:-1.4] RT Hip Total: [BMD (g/cm2):0.860] [T-score:-1.7] [Z-Score:-1.4] [BMD Previous:NA] [BMD % Change:NA] *Indicates significant change from prior examination based on 95% confidence level. World Health Organization criteria for BMD interpretation classify patients as Normal (T-score at or above -1.0), Osteopenic (T-score between -1.0 and -2.5) or Osteoporotic (T-score at or below -2.5). LIMITATIONS AND MODIFICATION: None. FRACTURE RISK (FRAX SCORE): The ten year probability of (%): Major Osteoporotic Fracture: [13.5] Hip Fracture: [3.1] IMPRESSION: 1. The total T-scores for the spine and the hips and for the right femoral neck fall within the range of osteopenia. 2. The T-score for the left femoral neck indicates osteoporosis. There is also osteoporosis of the vertebral body of L2. 3. See below National Osteoporosis Foundation guidelines on when to potentially initiate pharmacologic therapy. Based on the National Osteoporosis Foundation Guidelines, pharmacologic treatment should be initiated in any of the following, unless clinical conditions suggest otherwise: * Any patient with prior fragility fracture of the hip or vertebrae. A spine fracture indicates 5X risk for subsequent spine fracture and 2X risk for subsequent hip fracture. * Osteoporosis (T-score <-2.5). * Postmenopausal women and men age 50 and older with low bone mass/osteopenia (T-score between -1.0 and -2.5) by DXA and 10-year major osteoporotic fracture greater than 20% or a 10-year probability of hip fracture greater than 3%. These fracture risks are supplied above in the FRAX score, if applicable. * Clinician judgement and/or patient preferences may indicate treatment for people with 10-year fracture probabilities above or below these levels. Dictated by: Dictated on workstation # [id number]
== END ==
LOC: RAD 12:25
PROVIDERS: ATTEND Nurse Practitioner Adult Health
DX: Z13.820 Encounter for screening for osteoporosis (principal); C90.00 Multiple myeloma not having achieved remission; M81.0 Age-related osteoporosis without current pathological fracture; M85.89 Other specified disorders of bone density and structure, multiple sites
CPT/HCPCS: 77080

== ENCOUNTER 2019-09-17 09:51 | Outpatient (RCR) | payer MEDICARE ==
[~2019-09-17 09:51] MED LIST changes: -FLU QUADRIvalent (5+ YOA) 2019-2020 (Cancer Ctr) 0.5 ML IM ONE; +ZOLEDRONIC ACID (CANCER CTR) 3 MG in NS (IVPB) CANCER CENTER 100 ML IV SCH
[2019-09-17 10:19] LABS: BASOPHILS % (AUTO) 1 % (0-10); EOSINOPHILS # (AUTO) 0.1 10^3/uL (0.0-0.3); EOSINOPHILS % (AUTO) 2 % (0-10); HEMATOCRIT 43 % (40-54); LYMPHOCYTES # (AUTO) 1.2 X 10^3 (1.0-4.0); LYMPHOCYTES % (AUTO) 29 % (12-44); MEAN CORPUSCULAR HEMOGLOBIN 34 PG (25-34); MEAN CORPUSCULAR HGB CONC 35 G/DL (32-36); MEAN CORPUSCULAR VOLUME 98 FL (80-99); MEAN PLATELET VOLUME 10.2 FL (7.4-10.4); MONOCYTES # (AUTO) 0.8 X 10^3 (0.0-1.0); MONOCYTES % (AUTO) 18 % (0-12); NEUTROPHILS # (AUTO) 2.1 X 10^3 (1.8-7.8); NEUTROPHILS % (AUTO) 50 % (42-75); PLATELET COUNT 176 10^3/uL (130-400); RED CELL DISTRIBUTION WIDTH 13.6 % (10.0-14.5); WHITE BLOOD COUNT 4.1 10^3/uL (4.3-11.0)
[2019-09-17 10:39] LABS: ALANINE AMINOTRANSFERASE 29 U/L (0-55); ALBUMIN 4.2 GM/DL (3.2-4.5); ALKALINE PHOSPHATASE 46 U/L (40-136); BILIRUBIN,TOTAL 0.7 MG/DL (0.1-1.0); BUN/CREATININE RATIO 14; CALCIUM 9.3 MG/DL (8.5-10.1); CARBON DIOXIDE 23 MMOL/L (21-32); CHLORIDE 103 MMOL/L (98-107); CREATININE SERUM 1.23 MG/DL (0.60-1.30); GFR ESTIMATED > 60; GLUCOSE 111 MG/DL (70-105); POTASSIUM 3.5 MMOL/L (3.6-5.0); SODIUM 137 MMOL/L (135-145); TOTAL PROTEIN 7.3 GM/DL (6.4-8.2)
== END 2019-09-23 | disposition home or self-care (01) ==
LOC: ONC 09:51
PROVIDERS: ATTEND Internal Medicine Hematology & Oncology
DX: C90.01 Multiple myeloma in remission (principal); D47.2 Monoclonal gammopathy; M48.56XA Collapsed vertebra, not elsewhere classified, lumbar region, initial encounter for fracture; I10 Essential (primary) hypertension; M85.88 Other specified disorders of bone density and structure, other site; Z79.899 Other long term (current) drug therapy; Z94.81 Bone marrow transplant status; Z79.01 Long term (current) use of anticoagulants; Z92.21 Personal history of antineoplastic chemotherapy; Z98.890 Other specified postprocedural states; Z86.718 Personal history of other venous thrombosis and embolism
CPT/HCPCS: 36415; 80053; 82232; 82306; 82784; 83883; 84155; 84165; 85025; 96365

== ENCOUNTER 2020-03-03 10:32 | Outpatient (RCR) | payer MEDICARE ==
[2019-12-10 09:15] LABS: BASOPHILS % (AUTO) 1 % (0-10); EOSINOPHILS # (AUTO) 0.1 10^3/uL (0.0-0.3); EOSINOPHILS % (AUTO) 3 % (0-10); HEMATOCRIT 43 % (40-54); HEMOGLOBIN 15.1 G/DL (13.3-17.7); LYMPHOCYTES # (AUTO) 1.3 X 10^3 (1.0-4.0); LYMPHOCYTES % (AUTO) 30 % (12-44); MEAN CORPUSCULAR HEMOGLOBIN 35 PG (25-34); MEAN CORPUSCULAR HGB CONC 35 G/DL (32-36); MEAN CORPUSCULAR VOLUME 99 FL (80-99); MEAN PLATELET VOLUME 10.1 FL (7.4-10.4); MONOCYTES # (AUTO) 0.5 X 10^3 (0.0-1.0); MONOCYTES % (AUTO) 12 % (0-12); NEUTROPHILS # (AUTO) 2.3 X 10^3 (1.8-7.8); NEUTROPHILS % (AUTO) 55 % (42-75); PLATELET COUNT 168 10^3/uL (130-400); WHITE BLOOD COUNT 4.2 10^3/uL (4.3-11.0)
[2019-12-10 09:33] LABS: ALANINE AMINOTRANSFERASE 31 U/L (0-55); ALBUMIN 4.3 GM/DL (3.2-4.5); ALKALINE PHOSPHATASE 45 U/L (40-136); BILIRUBIN,TOTAL 0.7 MG/DL (0.1-1.0); BUN/CREATININE RATIO 12; CALCIUM 9.3 MG/DL (8.5-10.1); CARBON DIOXIDE 23 MMOL/L (21-32); CHLORIDE 103 MMOL/L (98-107); CREATININE SERUM 1.18 MG/DL (0.60-1.30); GFR ESTIMATED > 60; GLUCOSE 114 MG/DL (70-105); POTASSIUM 3.7 MMOL/L (3.6-5.0); SODIUM 137 MMOL/L (135-145); TOTAL PROTEIN 7.4 GM/DL (6.4-8.2)
[2020-03-03 09:36] LABS: BASOPHILS # (AUTO) 0.1 10^3/uL (0.0-0.1); BASOPHILS % (AUTO) 2 % (0-10); EOSINOPHILS # (AUTO) 0.1 10^3/uL (0.0-0.3); EOSINOPHILS % (AUTO) 2 % (0-10); HEMATOCRIT 44 % (40-54); HEMOGLOBIN 15.2 g/dL (13.3-17.7); LYMPHOCYTES # (AUTO) 1.3 10^3/uL (1.0-4.0); LYMPHOCYTES % (AUTO) 32 % (12-44); MEAN CORPUSCULAR HEMOGLOBIN 34 pg (25-34); MEAN CORPUSCULAR HGB CONC 34 g/dL (32-36); MEAN CORPUSCULAR VOLUME 101 fL (80-99); MEAN PLATELET VOLUME 10.2 fL (9.0-12.2); MONOCYTES # (AUTO) 0.4 10^3/uL (0.0-1.0); MONOCYTES % (AUTO) 10 % (0-12); NEUTROPHILS # (AUTO) 2.1 10^3/uL (1.8-7.8); NEUTROPHILS % (AUTO) 54 % (42-75); PLATELET COUNT 158 10^3/uL (130-400)
[2020-03-03 09:54] LABS: ALANINE AMINOTRANSFERASE 34 U/L (0-55); ALBUMIN 4.3 GM/DL (3.2-4.5); ALKALINE PHOSPHATASE 46 U/L (40-136); BUN/CREATININE RATIO 12; CALCIUM 9.2 MG/DL (8.5-10.1); CARBON DIOXIDE 23 MMOL/L (21-32); CHLORIDE 102 MMOL/L (98-107); CREATININE SERUM 1.15 MG/DL (0.60-1.30); GFR ESTIMATED > 60; GLUCOSE 111 MG/DL (70-105); POTASSIUM 3.8 MMOL/L (3.6-5.0); SODIUM 138 MMOL/L (135-145); TOTAL PROTEIN 7.3 GM/DL (6.4-8.2)
== END 2020-03-09 | disposition home or self-care (01) ==
LOC: ONC 10:32
PROVIDERS: ATTEND Internal Medicine Hematology & Oncology
DX: C90.01 Multiple myeloma in remission (principal); D47.2 Monoclonal gammopathy; M48.56XA Collapsed vertebra, not elsewhere classified, lumbar region, initial encounter for fracture; I10 Essential (primary) hypertension; M85.88 Other specified disorders of bone density and structure, other site; Z79.899 Other long term (current) drug therapy; Z94.81 Bone marrow transplant status; Z79.01 Long term (current) use of anticoagulants; Z92.21 Personal history of antineoplastic chemotherapy; Z98.890 Other specified postprocedural states; Z86.718 Personal history of other venous thrombosis and embolism
CPT/HCPCS: 80053; 82232; 82306; 82784 ×3; 83883; 84165; 85025; 96365; G0463; 36415; 84155

== ENCOUNTER 2020-09-10 10:43 | Outpatient (RCR) | payer MEDICARE ==
[2020-06-18 11:32] LABS: HEMATOCRIT 43 % (40-54); HEMOGLOBIN 14.6 G/DL (13.3-17.7); MEAN CORPUSCULAR HEMOGLOBIN 35 PG (25-34); MEAN CORPUSCULAR HGB CONC 34 G/DL (32-36); MEAN CORPUSCULAR VOLUME 101 FL (80-99); MEAN PLATELET VOLUME 9.6 FL (7.4-10.4); MONOCYTES % (AUTO) 15 % (0-12); NEUTROPHILS % (AUTO) 39 % (42-75); PLATELET COUNT 189 10^3/uL (130-400); WHITE BLOOD COUNT 2.5 10^3/uL (4.3-11.0)
[2020-06-18 11:33] LABS: BASOPHILS # (AUTO) 0.1 10^3/uL (0.0-0.1); BASOPHILS % (AUTO) 2 % (0-10); EOSINOPHILS % (AUTO) 2 % (0-10); LYMPHOCYTES % (AUTO) 42 % (12-44); MONOCYTES # (AUTO) 0.4 X 10^3 (0.0-1.0)
[2020-06-18 11:51] LABS: ALBUMIN 4.2 GM/DL (3.2-4.5); BILIRUBIN,TOTAL 0.7 MG/DL (0.1-1.0); CALCIUM 9.4 MG/DL (8.5-10.1); CREATININE SERUM 1.27 MG/DL (0.60-1.30); POTASSIUM 3.9 MMOL/L (3.6-5.0); TOTAL PROTEIN 7.3 GM/DL (6.4-8.2)
[2020-09-10 11:03] LABS: BASOPHILS # (AUTO) 0.1 10^3/uL (0.0-0.1); BASOPHILS % (AUTO) 2 % (0-10); EOSINOPHILS # (AUTO) 0.1 10^3/uL (0.0-0.3); EOSINOPHILS % (AUTO) 2 % (0-10); HEMATOCRIT 41 % (40-54); HEMOGLOBIN 14.6 g/dL (13.3-17.7); LYMPHOCYTES # (AUTO) 1.8 10^3/uL (1.0-4.0); LYMPHOCYTES % (AUTO) 45 % (12-44); MEAN CORPUSCULAR HEMOGLOBIN 35 pg (25-34); MEAN CORPUSCULAR HGB CONC 36 g/dL (32-36); MEAN CORPUSCULAR VOLUME 98 fL (80-99); MEAN PLATELET VOLUME 9.9 fL (9.0-12.2); MONOCYTES # (AUTO) 0.5 10^3/uL (0.0-1.0); MONOCYTES % (AUTO) 12 % (0-12); NEUTROPHILS # (AUTO) 1.5 10^3/uL (1.8-7.8); NEUTROPHILS % (AUTO) 39 % (42-75); PLATELET COUNT 190 10^3/uL (130-400)
[2020-09-10 11:53] LABS: ALBUMIN 4.2 GM/DL (3.2-4.5); BILIRUBIN,TOTAL 0.7 MG/DL (0.1-1.0); CALCIUM 9.5 MG/DL (8.5-10.1); CREATININE SERUM 1.24 MG/DL (0.60-1.30); POTASSIUM 3.5 MMOL/L (3.6-5.0)
== END 2020-09-16 | disposition home or self-care (01) ==
LOC: ONC 10:43
PROVIDERS: ATTEND Internal Medicine Hematology & Oncology
DX: C90.00 Multiple myeloma not having achieved remission (principal); E55.9 Vitamin D deficiency, unspecified; I82.442 Acute embolism and thrombosis of left tibial vein; M81.0 Age-related osteoporosis without current pathological fracture; I10 Essential (primary) hypertension; Z79.899 Other long term (current) drug therapy; Z79.01 Long term (current) use of anticoagulants; Z92.21 Personal history of antineoplastic chemotherapy; Z98.890 Other specified postprocedural states; Z98.1 Arthrodesis status
CPT/HCPCS: 80053; 82232; 82306; 82784 ×3; 83883; 84165; 85025; 96365; G0463; 36415; 84155

== ENCOUNTER 2021-02-25 10:46 | Outpatient (RCR) | payer MEDICARE ==
[2020-12-03 11:00] LABS: BASOPHILS # (AUTO) 0.1 10^3/uL (0.0-0.1); BASOPHILS % (AUTO) 3 % (0-10); EOSINOPHILS # (AUTO) 0.1 10^3/uL (0.0-0.3); EOSINOPHILS % (AUTO) 3 % (0-10); HEMATOCRIT 41 % (40-54); HEMOGLOBIN 14.2 g/dL (13.3-17.7); LYMPHOCYTES # (AUTO) 1.2 10^3/uL (1.0-4.0); LYMPHOCYTES % (AUTO) 38 % (12-44); MEAN CORPUSCULAR HEMOGLOBIN 35 pg (25-34); MEAN CORPUSCULAR HGB CONC 35 g/dL (32-36); MEAN CORPUSCULAR VOLUME 100 fL (80-99); MEAN PLATELET VOLUME 9.6 fL (9.0-12.2); MONOCYTES # (AUTO) 0.5 10^3/uL (0.0-1.0); MONOCYTES % (AUTO) 14 % (0-12); NEUTROPHILS # (AUTO) 1.4 10^3/uL (1.8-7.8); NEUTROPHILS % (AUTO) 42 % (42-75); PLATELET COUNT 201 10^3/uL (130-400); WHITE BLOOD COUNT 3.3 10^3/uL (4.3-11.0)
[2020-12-03 11:20] LABS: ALBUMIN 3.9 GM/DL (3.2-4.5); BILIRUBIN,TOTAL 0.6 MG/DL (0.1-1.0); CALCIUM 10.1 MG/DL (8.5-10.1); CREATININE SERUM 1.02 MG/DL (0.60-1.30); POTASSIUM 3.8 MMOL/L (3.6-5.0); TOTAL PROTEIN 6.9 GM/DL (6.4-8.2)
[2021-02-25 11:09] LABS: BASOPHILS # (AUTO) 0.1 10^3/uL (0.0-0.1); BASOPHILS % (AUTO) 2 % (0-10); EOSINOPHILS # (AUTO) 0.1 10^3/uL (0.0-0.3); EOSINOPHILS % (AUTO) 2 % (0-10); HEMATOCRIT 42 % (40-54); HEMOGLOBIN 14.5 g/dL (13.3-17.7); LYMPHOCYTES # (AUTO) 1.3 10^3/uL (1.0-4.0); LYMPHOCYTES % (AUTO) 39 % (12-44); MEAN CORPUSCULAR HEMOGLOBIN 35 pg (25-34); MEAN CORPUSCULAR HGB CONC 35 g/dL (32-36); MEAN CORPUSCULAR VOLUME 101 fL (80-99); MEAN PLATELET VOLUME 9.5 fL (9.0-12.2); MONOCYTES # (AUTO) 0.5 10^3/uL (0.0-1.0); MONOCYTES % (AUTO) 15 % (0-12); NEUTROPHILS # (AUTO) 1.4 10^3/uL (1.8-7.8); NEUTROPHILS % (AUTO) 41 % (42-75); PLATELET COUNT 186 10^3/uL (130-400); WHITE BLOOD COUNT 3.4 10^3/uL (4.3-11.0)
[2021-02-25 11:27] LABS: BILIRUBIN,TOTAL 0.8 MG/DL (0.1-1.0); CREATININE SERUM 0.97 MG/DL (0.60-1.30); POTASSIUM 3.6 MMOL/L (3.6-5.0); TOTAL PROTEIN 6.9 GM/DL (6.4-8.2)
== END 2021-03-03 | disposition home or self-care (01) ==
LOC: ONC 10:46
PROVIDERS: ATTEND Internal Medicine Hematology & Oncology
DX: Z51.11 Encounter for antineoplastic chemotherapy (principal); C90.00 Multiple myeloma not having achieved remission; M81.0 Age-related osteoporosis without current pathological fracture; I10 Essential (primary) hypertension; Z79.01 Long term (current) use of anticoagulants; Z98.890 Other specified postprocedural states; Z98.1 Arthrodesis status; Z86.718 Personal history of other venous thrombosis and embolism; Z79.899 Other long term (current) drug therapy
CPT/HCPCS: 80053; 82232; 82306; 82784 ×3; 83883; 84165; 85025; 96365; G0463; 36415; 84155; 90471

== ENCOUNTER 2022-05-16 13:36 | Inpatient (IN) | payer MEDICARE ==
[~2022-05-16] VITALS: Ht 175 cm; Wt 83.8 kg
[~2022-05-16 13:36] MED LIST changes: -TEST100V3 IM; +TEST100V9 IM; -ZOLEDRONIC ACID (CANCER CTR) 3 MG in NS (IVPB) CANCER CENTER 100 ML IV SCH
[2022-05-16 14:27] LABS: BASOPHILS % (AUTO) 0 % (0-10); EOSINOPHILS % (AUTO) 1 % (0-10); HEMATOCRIT 39 % (40-54); HEMOGLOBIN 13.8 g/dL (13.3-17.7); LYMPHOCYTES # (AUTO) 0.9 10^3/uL (1.0-4.0); LYMPHOCYTES % (AUTO) 18 % (12-44); MEAN CORPUSCULAR HEMOGLOBIN 36 pg (25-34); MEAN CORPUSCULAR HGB CONC 36 g/dL (32-36); MEAN CORPUSCULAR VOLUME 100 fL (80-99); MEAN PLATELET VOLUME 10.3 fL (9.0-12.2); MONOCYTES # (AUTO) 1.1 10^3/uL (0.0-1.0); MONOCYTES % (AUTO) 21 % (0-12); NEUTROPHILS % (AUTO) 60 % (42-75); PLATELET COUNT 205 10^3/uL (130-400)
[2022-05-16] MEDS ORDERED: fentaNYL INJ 100 MCG/2 ML AMP IVP ONE ×2 (14:30→16:45)
[2022-05-16 14:31] LABS: CLARITY,URINE SL CLOUDY; COLOR,URINE AMBER; GLUCOSE, URINE (UA) TRACE (NEGATIVE); KETONES,URINE 1+ (NEGATIVE); LEUKOCYTE ESTERASE ,URINE TRACE (NEGATIVE); NITRITE,URINE POSITIVE (NEGATIVE); PH,URINE 6.5 (5-9); PROTEIN,URINE 3+ (NEGATIVE)
--- NOTE | 2022-05-16 14:41 | ED Abdominal Pain ---
General Chief Complaint: Abdominal/GI Problems Stated Complaint: CANCER PT | BLOOD IN URINE AND ABD PAIN Nursing Triage Note: pt presents to ED by POV with c/o RLQ abdominal pain that worsens with deep breaths and hematuria that begun last night. Source of Information: Patient Exam Limitations: No Limitations History of Present Illness Date Seen by Provider: May 16, 2022 Time Seen by Provider: 14:05 Initial Comments This is 62-year-old gentleman presents to the emergency room via private vehicle with concerns about rather intense right upper quadrant pain that is worse with inspiration and moving. He is undergoing active treatment for multiple myeloma. Patient first noted symptoms of illness on Monday night May 14, 3 days ago. He was having night sweats and right upper quadrant pain after eating some chili. Symptoms have worsened since then. He denies any constipation, diarrhea, nausea, or vomiting. Pain does not change with eating. He does feel a bit short of breath and has had some mild cough. He also noted hematuria and notes that he is on Xarelto due to prior history of DVT. He is taking chemotherapy for multiple myeloma and comments he was told Revlimid increases risk for DVT. He takes this medication in cycles of 20 days on and 7 days off. He just finished a 21-day course yesterday. Patient is noted to have tremors which he states are chronic and related to multiple myeloma treatment, and they worsen when he is in pain. His primary care provider is Dr. Aram Blackman and his oncologist is Dr. Sadler. Patient's last dose of Xarelto was this morning and his last oral intake was a chicken sandwich at noon with water. Allergies and Home Medications Allergies Coded Allergies: No Known Drug Allergies (Unverified , 10/23/15) Patient Home Medication List Home Medication List Reviewed: Yes Amlodipine Besylate (Norvasc) 10 Mg Tablet, 10 MG PO DAILY, (Reported) Entered as Reported by: SWATHI DERAS on 10/23/15 1136 Enalapril Maleate (Enalapril Maleate) 5 Mg Tablet, 5 MG PO DAILY, (Reported) Entered as Reported by: SWATHI DERAS on 10/23/15 1156 Fluoxetine HCl (Prozac) 40 Mg Capsule, 40 MG PO DAILY, (Reported) Entered as Reported by: SWATHI DERAS on 10/23/15 1136 Testosterone Cypionate (Testosterone Cypionate) 100 Mg/1 Ml Vial, 100 MG IM MONTHLY, (Reported) Entered as Reported by: SWATHI DERAS on 10/23/15 1138 Review of Systems Review of Systems Constitutional: see HPI Respiratory: See HPI Cardiovascular: No Symptoms Reported Gastrointestinal: See HPI Genitourinary: See HPI Musculoskeletal: no symptoms reported Skin: no symptoms reported Psychiatric/Neurological: No Symptoms Reported Endocrine: No Symptoms Reported Hematologic/Lymphatic: See HPI Past Qolyvir-Nmmkna-Efsfks Hx Patient Social History Tobacco Use?: No Substance use?: No Alcohol Use?: No Pt feels they are or have been: No Immunizations Up To Date Influenza Vaccine Up-to-Date: Yes; Up-to-Date Past Medical History Surgeries: Yes Orthopedic (Lumbar kyphoplasty) Respiratory: No Cardiac: Yes Deep Vein Thrombosis Neurological: Yes (Tremor) Reproductive Disorders: No Sexually Transmitted Disease: No HIV/AIDS: No Genitourinary: Yes Prostate Problems Gastrointestinal: No Musculoskeletal: Yes Chronic Back Pain HEENT: No Loss of Vision: Bilateral Hearing Impairment: Denies Cancer: Yes (Multiple myeloma) Did You Recieve Any Treatments: No Psychosocial: No Depression Adverse Reaction/Blood Tranf: No (N/A) Physical Exam Vital Signs Vital Signs - First Documented 05/16/22 13:44 Temp 37.0 Pulse 91 Resp 29 B/P (MAP) 161/78 (105) Pulse Ox 98 O2 Delivery Room Air Capillary Refill : Less Than 3 Seconds Height/Weight/BMI Height: 5'9.00" Weight: 189lbs. 0.0oz. 85.786532ma; 27.00 BMI Method: General Appearance: WD/WN, mild distress HEENT: PERRL/EOMI, normal ENT inspection Neck: normal inspection Respiratory: lungs clear, no respiratory distress, decreased breath sounds (Diminished in the bases, splinting respirations) Cardiovascular: regular rate, rhythm, no edema, no murmur Gastrointestinal: normal bowel sounds, soft, tenderness (Right upper quadrant) Extremities: normal inspection, no pedal edema, no calf tenderness Neurologic/Psychiatric: no motor/sensory deficits, alert, normal mood/affect, oriented x 3 Skin: normal color, warm/dry Focused Exam Lactate Level 05/16/22 15:50: Lactic Acid Level 0.84 Lactic Acid Level Laboratory Tests Test 05/16/22 15:50 Lactic Acid Level 0.84 MMOL/L (0.50-2.00) Progress/Results/Core Measures Results/Orders Lab Results Laboratory Tests Test 05/16/22 14:00 05/16/22 15:50 Range/Units White Blood Count 5.0 4.3-11.0 10^3/uL Red Blood Count 3.89 L 4.30-5.52 10^6/uL Hemoglobin 13.8 13.3-17.7 g/dL Hematocrit 39 L 40-54 % Mean Corpuscular Volume 100 H 80-99 fL Mean Corpuscular Hemoglobin 36 H 25-34 pg Mean Corpuscular Hemoglobin Concent 36 32-36 g/dL Red Cell Distribution Width 12.5 10.0-14.5 % Platelet Count 205 130-400 10^3/uL Mean Platelet Volume 10.3 9.0-12.2 fL Immature Granulocyte % (Auto) 0 % Neutrophils (%) (Auto) 60 42-75 % Lymphocytes (%) (Auto) 18 12-44 % Monocytes (%) (Auto) 21 H 0-12 % Eosinophils (%) (Auto) 1 0-10 % Basophils (%) (Auto) 0 0-10 % Neutrophils # (Auto) 3.0 1.8-7.8 10^3/uL Lymphocytes # (Auto) 0.9 L 1.0-4.0 10^3/uL Monocytes # (Auto) 1.1 H 0.0-1.0 10^3/uL Eosinophils # (Auto) 0.0 0.0-0.3 10^3/uL Basophils # (Auto) 0.0 0.0-0.1 10^3/uL Immature Granulocyte # (Auto) 0.0 0.0-0.1 10^3/uL Neutrophils % (Manual) 56 % Lymphocytes % (Manual) 19 % Monocytes % (Manual) 21 % Eosinophils % (Manual) 4 % Band Neutrophils % Blood Morphology Comment NORMAL Prothrombin Time 17.5 H 12.2-14.7 SEC INR Comment 1.4 0.8-1.4 Activated Partial Thromboplast Time 43 H 24-35 SEC Urine Color FELECIA H Urine Clarity SL CLOUDY Urine pH 6.5 5-9 Urine Specific Fritch 1.025 H 1.016-1.022 Urine Protein 3+ H NEGATIVE Urine Glucose (UA) TRACE H NEGATIVE Urine Ketones 1+ H NEGATIVE Urine Nitrite POSITIVE H NEGATIVE Urine Bilirubin 3+ H NEGATIVE Urine Urobilinogen 4.0 < = 1.0 MG/DL Urine Leukocyte Esterase TRACE H NEGATIVE Urine RBC (Auto) 3+ H NEGATIVE Urine RBC 10-25 H /HPF Urine WBC 2-5 /HPF Urine Squamous Epithelial Cells RARE /HPF Urine Crystals NONE /LPF Urine Bacteria FEW H /HPF Urine Casts PRESENT /LPF Urine Hyaline Casts 2-5 H /LPF Urine Mucus SMALL H /LPF Urine Culture Indicated YES Sodium Level 134 L 135-145 MMOL/L Potassium Level 3.1 L 3.6-5.0 MMOL/L Chloride Level 94 L 98-107 MMOL/L Carbon Dioxide Level 24 21-32 MMOL/L Anion Gap 16 H 5-14 MMOL/L Blood Urea Nitrogen 13 7-18 MG/DL Creatinine 1.18 0.60-1.30 MG/DL Estimat Glomerular Filtration Rate 71 BUN/Creatinine Ratio 11 Glucose Level 150 H 70-105 MG/DL Calcium Level 10.2 H 8.5-10.1 MG/DL Corrected Calcium 10.4 H 8.5-10.1 MG/DL Total Bilirubin 6.3 H 0.1-1.0 MG/DL Aspartate Amino Transf (AST/SGOT) 208 H 5-34 U/L Alanine Aminotransferase (ALT/SGPT) 284 H 0-55 U/L Alkaline Phosphatase 384 H 40-136 U/L C-Reactive Protein High Sensitivity 35.34 H 0.00-0.50 MG/DL Total Protein 7.9 6.4-8.2 GM/DL Albumin 3.8 3.2-4.5 GM/DL Lipase 29 8-78 U/L Lactic Acid Level 0.84 0.50-2.00 MMOL/L My Orders Orders - TED CR MD Fentanyl Inj (Sublimaze Injection) (05/16/22 14:30) Us Gallbladder 10111 (05/16/22 14:20) Chest Pa/Lat (2 View) (05/16/22 14:20) Cbc With Automated Diff (05/16/22 14:21) Comprehensive Metabolic Panel (05/16/22 14:21) Hs C Reactive Protein (05/16/22 14:21) Lipase (05/16/22 14:21) Ua Culture If Indicated (05/16/22 14:21) Ed Iv/Invasive Line Start (05/16/22 14:21) Manual Differential (05/16/22 14:00) Urine Culture (05/16/22 14:00) Blood Culture (05/16/22 15:13) Sputum Culture (05/16/22 15:13) Protime With Inr (05/16/22 15:13) Partial Thromboplastin Time (05/16/22 15:13) Vital Signs Adult Sepsis Patie Q15M (05/16/22 15:13) Remove Rings In Anticipation O (05/16/22 15:13) Lactic Acid Analyzer (05/16/22 15:13) Piperacillin Sodium/Tazobactam (Zosyn Vi (05/16/22 15:15) Fentanyl Inj (Sublimaze Injection) (05/16/22 16:45) Ns Iv 1000 Ml (Sodium Chloride 0.9%) (05/16/22 17:15) Potassium Cl 10meq/50ml Ivpb (Kcl 10 Meq (05/16/22 17:15) Medications Given in ED Current Medications Medications Dose Ordered Sig/Davey Route Start Time Stop Time Status Last Admin Dose Admin Fentanyl Citrate 50 mcg ONCE ONCE IVP 05/16/22 16:45 05/16/22 16:46 DC 05/16/22 17:15 50 MCG Fentanyl Citrate 75 mcg ONCE ONCE IVP 05/16/22 14:30 05/16/22 14:31 DC 05/16/22 14:28 75 MCG Piperacillin Sod/ Tazobactam Sod 4.5 gm/Sodium Chloride 100 ml @ 200 mls/hr ONCE ONCE IV 05/16/22 15:15 05/16/22 15:44 DC 05/16/22 15:52 200 MLS/HR Potassium Chloride 50 ml @ 50 mls/hr ONCE ONCE IV 05/16/22 17:15 05/16/22 18:14 05/16/22 17:15 50 MLS/HR Vital Signs/I&O 05/16/22 05/16/22 13:44 17:37 Temp 37.0 Pulse 91 68 Resp 29 18 B/P (MAP) 161/78 (105) 112/70 (84) Pulse Ox 98 O2 Delivery Room Air Room Air Blood Pressure Mean: 105 Progress Progress Note : Time: 17:39 Progress Note Patient was interviewed and examined. Abdominal pain work-up was pursued including CBC, CMP, lipase, urinalysis, and gallbladder ultrasound. Gallbladder images were reviewed by me and report reviewed. There is evidence of acute cholecystitis and possible biliary duct dilatation. In the context of elevated serum bilirubin and transaminases, this is concerning for biliary obstruction. Case was discussed with Dr. Rudd, general surgeon on-call. He recommended ERCP. ERCP cannot be performed at [facility]. And consulted with Dr. Galvan, hot press operator at [facility]. Patient cannot be transferred there for admission due to lack of bed capacity, but he can be transferred there for ERCP. Upon completing ERCP, he can be transferred back to [facility] for cholecystectomy. Dr. Rudd is the accepting provider upon return. While in the emergency room he received a liter of normal saline and potassium chloride 10 mEq IV. Antibiotic therapy was initiated with a dose of Zosyn. Blood cultures and lactic acid were drawn prior to antibiotic therapy. Pain was treated with multiple doses of fentanyl. Diagnostic Imaging Diagonstic Imaging: Ultrasound Plain Films/CT/US/NM/MRI: abdomen Comments Gallbladder ultrasound images reviewed by me and report reviewed. See report below: NAME[facility] REC#: [id number] PT STATUS: REG ER : 1960 PHYSICIAN: TED CR MD ADMIT DATE: 05/16/22/ER Draft Date of Exam:05/16/22 US GALLBLADDER [id number] PROCEDURE: US Gallbladder. TECHNIQUE: Multiple real-time grayscale images were obtained over the right upper quadrant in various projections. INDICATION: Right upper quadrant pain. FINDINGS: Liver is normal in size measuring 14.6 cm. Portal vein is patent and shows normal direction of flow. No liver mass is identified. The gallbladder appears to be thick walled measuring 3-4 mm. There is gallbladder sludge present. There appears to be a stone in the region of the gallbladder neck. No pericholecystic fluid is identified. The extrahepatic bile duct is somewhat dilated at 8 mm. No definite stone is seen. The pancreas, aorta, and IVC were obscured by bowel gas. Right kidney is unremarkable. There is no ascites. Patient did have a positive sonographic Louise's sign. IMPRESSION: Findings suspicious for cholelithiasis and acute cholecystitis. The extrahepatic bile duct is somewhat dilated. No definite common duct stone is detected but cannot be entirely excluded. Dictated on workstation # [id number] Dict: 05/16/22 1454 Trans: 05/16/22 1504 [id number] Interpreted by: MARLA SUTHERLAND MD Diagonstic Imaging: Xray Plain Films/CT/US/NM/MRI: chest Comments NAME: [facility] REC#: [id number] PT STATUS: REG ER : 1960 PHYSICIAN: TED CR MD ADMIT DATE: 05/16/22/ER Signed Date of Exam:05/16/22 CHEST PA/LAT (2 VIEW) INDICATION: Right upper quadrant pain with shortness of air. COMPARISON: Exam compared to 02/19/2016. FINDINGS: Lungs are clear. No failure, effusion, or pneumothorax. A previous right IJ catheter has been removed. IMPRESSION: Normal two-view chest. Dictated by: Dictated on workstation # [id number] Dict: 05/16/22 1524 Trans: 05/16/22 1646 [facility] [id number] Interpreted by: BILL SILVESTRE Electronically signed by: BILL SILVESTRE 05/16/22 1646 Departure Impression Primary Impression: Acute cholecystitis Additional Impressions: Multiple myeloma Qualified Codes: C90.00 - Multiple myeloma not having achieved remission Hematuria Qualified Codes: R31.9 - Hematuria, unspecified Biliary obstruction Hypokalemia Disposition: T-[facility] Condition: Stable Transfer Transfer Reason: Exceeds level of care Time Spoke to Accepting Phy: 17:30 Transfer Progress Notes Transfer accepted by Dr. Galvan for ERCP. He will then be transferred back to [place] [facility] for cholecystectomy. Departure-Patient Inst. Referrals: MANDY BLACKMAN MD (PCP/Family) Primary Care Physician Copy Copies To 1: NALDO SADLER Copies To 2: MANDY BLACKMAN MD, JOSHUA T MD May 16, 2022 14:41
[2022-05-16 14:47] LABS: ALBUMIN 3.8 GM/DL (3.2-4.5); BILIRUBIN,TOTAL 6.3 MG/DL (0.1-1.0); CALCIUM 10.2 MG/DL (8.5-10.1); CREATININE SERUM 1.18 MG/DL (0.60-1.30); POTASSIUM 3.1 MMOL/L (3.6-5.0); TOTAL PROTEIN 7.9 GM/DL (6.4-8.2)
[2022-05-16 14:54] LABS: BACTERIA,URINE FEW /HPF; BILIRUBIN,URINE 3+ (NEGATIVE); SQUAMOUS EPITHELIAL CELL,UR RARE /HPF
[2022-05-16 15:00] LABS: EOSINOPHILS % (MANUAL) 4 %; LYMPHOCYTES % (MANUAL) 19 %; MONOCYTES % (MANUAL) 21 %; NEUTROPHILS % (MANUAL) 56 %; RBC MORPH NORMAL
--- NOTE | 2022-05-16 15:04 | Diagnostic Imaging Report ---
PROCEDURE: US Gallbladder. TECHNIQUE: Multiple real-time grayscale images were obtained over the right upper quadrant in various projections. INDICATION: Right upper quadrant pain. FINDINGS: Liver is normal in size measuring 14.6 cm. Portal vein is patent and shows normal direction of flow. No liver mass is identified. The gallbladder appears to be thick walled measuring 3-4 mm. There is gallbladder sludge present. There appears to be a stone in the region of the gallbladder neck. No pericholecystic fluid is identified. The extrahepatic bile duct is somewhat dilated at 8 mm. No definite stone is seen. The pancreas, aorta, and IVC were obscured by bowel gas. Right kidney is unremarkable. There is no ascites. Patient did have a positive sonographic Louise's sign. IMPRESSION: Findings suspicious for cholelithiasis and acute cholecystitis. The extrahepatic bile duct is somewhat dilated. No definite common duct stone is detected but cannot be entirely excluded. Dictated by: Dictated on workstation # [id number]
[2022-05-16] MEDS ORDERED: PIPERACILLIN SODIUM/TAZOBACTAM 4.5 GM in NS (IVPB) 100 ML IV ONE (15:15)
--- NOTE | 2022-05-16 15:29 | Diagnostic Imaging Report ---
INDICATION: Right upper quadrant pain with shortness of air. COMPARISON: Exam compared to 02/19/2016. FINDINGS: Lungs are clear. No failure, effusion, or pneumothorax. A previous right IJ catheter has been removed. IMPRESSION: Normal two-view chest. Dictated by: Dictated on workstation # [id number]
[2022-05-16 15:34] LABS: INR 1.4 (0.8-1.4); PROTHROMBIN TIME PATIENT 17.5 SEC (12.2-14.7)
[2022-05-16] MEDS ORDERED: NS IV 1000 ML 1,000 ML IV SCH (17:15)
[2022-05-16] MEDS ORDERED: POTASSIUM CL 10MEQ/50ML IVPB 50 ML IV ONE (17:15)
[2022-05-16] MEDS ORDERED: morphine INJ 10 MG/ML 1ML (SYR OR VIAL) IVP STA (17:55)
[2022-05-16 23:45] VITALS: BP 113/56
[2022-05-17] MEDS ORDERED: ONDANSETRON 4 MG/2 ML (SDV) Z0FRAN IVP PRN
--- OUTSIDE RECORDS SUMMARY | 2022-05-17 | XMS REPORT | Clinical Summary ---
Author Author [facility] Organization [facility] Address Unknown Phone Unavailable Care Team Providers Care Wellness Trainer Name Role Phone Crissy Navarro RN Unavailable Unavailable Source Comments Some departments are not documenting in the electronic medical record. If you d o not see the information that you expected, contact Release of Information in [facility] [employer] Information Management department at [phone] for further assistan ce in locating additional records.[facility] Allergies Not on File Medications Not on file Active Problems Not on file Social History Date Tobacco Use Types Packs/Day Years Used Smoking Tobacco: Never Assessed Sex Assigned at Date Recorded Not on file Last Filed Vital Signs Not on file Plan of Treatment Health Maintenance Due Date Last Done Comments COVID-19 VACCINE (#1) 1960 HIV SCREENING 1977 DTAP/TDAP VACCINES (1 - 02/27/1980 Tdap) HEPATITIS C SCREENING 02/27/1980 PHYSICAL (COMPREHENSIVE) 02/27/1980 EXAM COLORECTAL CANCER 2007 SCREENING SHINGLES RECOMBINANT 02/27/2012 VACCINE (1 of 2) INFLUENZA VACCINE (#1) 2021 DEPRESSION SCREENING 04/17/2022 Results Not on filefrom Last 3 Months Care Teams Start Date End Date Wellness Trainer Relationship Specialty 10/27/15 Crissy Navarro, RN
[2022-05-17 00:20] VITALS: BP 113/56
[2022-05-17] MEDS: LACTATED RINGERS 1,000 ML IV SCH ×4 (00:25→23:53)
[2022-05-17] MEDS: PIPERACILLIN SODIUM/TAZOBACTAM 4.5 GM in NS (IVPB) 100 ML IV SCH ×4 (00:26→23:54)
[2022-05-17] MEDS: morphine INJ 4 MG/ML 1 ML (VIAL/SYRINGE) IVP PRN ×6 (00:34→20:43)
[2022-05-17] MEDS ORDERED: RT-ALBUTEROL SULF 2.5 MG/3 ML PRE-MIX VIAL INH PRN (01:00)
[2022-05-17 03:28] VITALS: BP 121/67
[2022-05-17 05:25] LABS: BASOPHILS % (AUTO) 1 % (0-10); EOSINOPHILS % (AUTO) 1 % (0-10); HEMATOCRIT 32 % (40-54); HEMOGLOBIN 11.1 g/dL (13.3-17.7); LYMPHOCYTES # (AUTO) 0.8 10^3/uL (1.0-4.0); LYMPHOCYTES % (AUTO) 19 % (12-44); MEAN CORPUSCULAR HEMOGLOBIN 35 pg (25-34); MEAN CORPUSCULAR HGB CONC 35 g/dL (32-36); MEAN CORPUSCULAR VOLUME 101 fL (80-99); MONOCYTES # (AUTO) 1.1 10^3/uL (0.0-1.0); MONOCYTES % (AUTO) 26 % (0-12); NEUTROPHILS # (AUTO) 2.2 10^3/uL (1.8-7.8); NEUTROPHILS % (AUTO) 54 % (42-75); PLATELET COUNT 191 10^3/uL (130-400); WHITE BLOOD COUNT 4.1 10^3/uL (4.3-11.0)
[2022-05-17 05:45] LABS: ALBUMIN 2.8 GM/DL (3.2-4.5); CALCIUM 8.9 MG/DL (8.5-10.1); CREATININE SERUM 1.05 MG/DL (0.60-1.30); POTASSIUM 3.3 MMOL/L (3.6-5.0)
[2022-05-17 07:05] VITALS: BP 119/71
[2022-05-17] MEDS: PANTOPRAZOLE 40 MG (PROTONIX) VIAL IV SCH (07:44)
--- NOTE | 2022-05-17 08:58 | Consultation - Surgery ---
IBAN TOLBERT 05/17/22 0858: History of Present Illness History of Present Illness Patient Consulted On(sarthak/time) 05/17/22 08:57 Date Seen by Provider: May 17, 2022 Time Seen by Provider: 08:20 Reason for Visit: Severe right upper quadrant pain secondary to cholecystitis. History of Present Illness Our patient is a 62 year old man who presented to the emergency department yesterday at around 1330 with sharp right upper quadrant pain, bloody urine, and night sweats. He states that his pain began Monday night after eating a bowl of chili and initially thought that he was experiencing gas pains. His pain continued to worsen throughout the weekend before noticing bright red blood in his urine Monday morning. He describes his pain as constant, sharp, and 10/10 on arrival. Now he rates his pain at a 7/10 but notes that it has been consistent in character. He denies nausea and vomiting, notes chronic constipation due to prescribed opioid use and his last BM was yesterday morning. He has a past [facility] history of multiple myeloma diagnosed in 2005 for which he takes Revlimid. His chemotherapy is taken in sets of 20 days on and 7 days off, prescribed by Dr. Hernandez his oncologist. Additional medical history includes a DVT 7 years ago for which he now takes Xarelto, depression treated with prozad, hypertension treated with amlodipine and enalapril. He also takes a testosterone supplement. No known allergies. Does not smoke but did chew tobacco for around 10 years before stopping at 34. He has around 4 alcoholic drinks a week but denies illicit drug use. Yesterday he underwent ERCP in [place]. Allergies and Home Medications Allergies Coded Allergies: No Known Drug Allergies (Unverified , 10/23/15) Patient Home Medication List Home Medication List Reviewed: Yes Amlodipine Besylate (Amlodipine Besylate) 10 Mg Tablet, 10 MG PO DAILY, (Reported) Entered as Reported by: MARTHA JACOBSON on 05/17/22 1017 Last Action: Reviewed Calcium Carbonate/Vitamin D3 (Calcium 600 + Vit D Caplet) 600 Mg Calcium-10 Mcg (400 Unit) Tablet, 2 EACH PO DAILY, (Reported) Entered as Reported by: MARTHA JACOBSON on 05/17/22 1017 Last Action: Reviewed Enalapril/Hydrochlorothiazide (Enalapril-Hctz 5-12.5 mg Tab) 5 Mg-12.5 Mg Tablet, 1 EA PO DAILY, (Reported) Entered as Reported by: MARTHA JACOBSON on 05/17/221016 Last Action: Reviewed Fluoxetine HCl (Fluoxetine HCl) 40 Mg Capsule, 40 MG PO DAILY, (Reported) Entered as Reported by: MARTHA JACOBSON on 05/17/221016 Last Action: Reviewed Hydrocodone/Acetaminophen (Hydrocodone-Acetamin 7.5-325) 7.5 Mg-325 Mg Tablet, 1 EA PO Q6H PRN for PAIN-MODERATE (5-7), (Reported) Entered as Reported by: MARTHA JACOBSON on 05/17/221016 Last Action: Reviewed Lenalidomide (Revlimid) 10 Mg Capsule, 10 MG PO DAILY, (Reported) Entered as Reported by: MARTHA JACOBSON on 05/17/221016 Last Action: Reviewed Rivaroxaban (Xarelto) 10 Mg Tablet, 10 MG PO DAILY, (Reported) Entered as Reported by: MARTHA JACOBSON on 05/17/221016 Last Action: Reviewed Discontinued Medications Amlodipine Besylate (Norvasc) 10 Mg Tablet, 10 MG PO DAILY, (Reported) Discontinued Reason: No Longer Taking Entered as Reported by: SWATHI DERAS on 10/23/151135 Last Action: Discontinued Enalapril Maleate (Enalapril Maleate) 5 Mg Tablet, 5 MG PO DAILY, (Reported) Discontinued Reason: No Longer Taking Entered as Reported by: SWATHI DERAS on 10/23/15 115 Last Action: Discontinued Fluoxetine HCl (Prozac) 40 Mg Capsule, 40 MG PO DAILY, (Reported) Discontinued Reason: No Longer Taking Entered as Reported by: SWATHI DERAS on 10/23/151135 Last Action: Discontinued Testosterone Cypionate (Testosterone Cypionate) 100 Mg/1 Ml Vial, 100 MG IM MONTHLY, (Reported) Discontinued Reason: No Longer Taking Entered as Reported by: SWATHI DERAS on 10/23/151137 Last Action: Discontinued Past Gbdoove-Mwpcoa-Boyfvj Hx Patient Social History Smoking Status: Never a Smoker Alcohol Use?: Yes (4 drinks a week) Have you traveled recently?: No Surgeries History of Surgeries: Yes Surgeries: Orthopedic (Lumbar kyphoplasty), Testicular (Indirect hernia repair at 20 or 21.) Respiratory History of Respiratory Disorde: No Cardiovascular History of Cardiac Disorders: Yes Cardiac Disorders: Deep Vein Thrombosis (Around 7 years ago for which he is now treated with Xarelto) Neurological History of Neurological Disord: Yes (Tremor) Reproductive System Hx Reproductive Disorders: No Sexually Transmitted Disease: No HIV/AIDS: No Genitourinary History of Genitourinary Disor: Yes Genitourinary Disorders: Prostate Problems Gastrointestinal History of Gastrointestinal Di: No Musculoskeletal History of Musculoskeletal Dis: Yes Musculoskeletal Disorders: Chronic Back Pain Endocrine History of Endocrine Disorders: No HEENT History of HEENT Disorders: No Loss of Vision: Bilateral Hearing Impairment: Denies Cancer History of Cancer: Yes (Multiple myeloma) Psychosocial History of Psychiatric Problem: No Behavioral Health Disorders: Depression (Well controlled with Prozac) Blood Transfusions Adverse Reaction to a Blood Tr: No (N/A) Review of Systems-General Constitutional: see HPI, diaphoresis (Night sweats since this weekend) EENTM: see HPI, no symptoms reported Respiratory: no symptoms reported, see HPI Cardiovascular: no symptoms reported Gastrointestinal: see HPI, abdominal pain (RUQ, severe, constant at 10/10 on arrival to the ER.), constipation (Chronic constipation due to prescribed hydrocodone); No nausea, No vomiting Genitourinary: hematuria (Gross blood in the urine since Monday morning) Musculoskeletal: back pain (Chronic back pain) Skin: no symptoms reported Psychiatric/Neurological: See HPI; Denies Headache; Tremors (Related to his chemotherapy, worsens with pain.) Physical Exam-General Problems Physical Exam Vital Signs Vital Signs - First Documented 05/16/22 05/17/22 13:44 00:35 Temp 37.0 Pulse 91 Resp 29 B/P (MAP) 161/78 (105) Pulse Ox 98 O2 Delivery Room Air O2 Flow Rate 0.00 Capillary Refill : Less Than 3 Seconds General Appearance: WD/WN, no apparent distress HEENT: PERRL/EOMI Neck: non-tender, supple Respiratory: chest non-tender, lungs clear, normal breath sounds, no respiratory distress, no accessory muscle use Cardiovascular: normal peripheral pulses, regular rate, rhythm, no edema, no gallop, no murmur Peripheral Pulses: 2+ Dorsalis Pedis (R), 2+ Left Dors-Pedis (L), 2+ Radial Pulses (R), 2+ Radial Pulses (L) Gastrointestinal: normal bowel sounds, soft; No guarding, No rebound; tenderness (Positive Louise's Sign) Rectal: deferred Extremities: non-tender, no pedal edema Neurologic/Psychiatric: alert, normal mood/affect, oriented x 3 Skin: normal color, warm/dry Lymphatic: no adenopathy (Cervical) Data Review Labs Laboratory Tests 05/16/22 14:00: White Blood Count 5.0, Red Blood Count 3.89L, Hemoglobin 13.8, Hematocrit 39L, Mean Corpuscular Volume 100H, Mean Corpuscular Hemoglobin 36H, Mean Corpuscular Hemoglobin Concent 36, Red Cell Distribution Width 12.5, Platelet Count 205, Mean Platelet Volume 10.3, Immature Granulocyte % (Auto) 0, Neutrophils (%) (Auto) 60, Lymphocytes (%) (Auto) 18, Monocytes (%) (Auto) 21H, Eosinophils (%) (Auto) 1, Basophils (%) (Auto) 0, Neutrophils # (Auto) 3.0, Lymphocytes # (Auto) 0.9L, Monocytes # (Auto) 1.1H, Eosinophils # (Auto) 0.0, Basophils # (Auto) 0.0, Immature Granulocyte # (Auto) 0.0, Neutrophils % (Manual) 56, Lymphocytes % (Manual) 19, Monocytes % (Manual) 21, Eosinophils % (Manual) 4, Band Neutrophils , Blood Morphology Comment NORMAL, Prothrombin Time 17.5H, INR Comment 1.4, Activated Partial Thromboplast Time 43H, Urine Color AMBERH, Urine Clarity SL CLOUDY, Urine pH 6.5, Urine Specific [place] 1.025H, Urine Protein 3+H, Urine Glucose (UA) TRACEH, Urine Ketones 1+H, Urine Nitrite POSITIVEH, Urine Bilirubin 3+H, Urine Urobilinogen 4.0, Urine Leukocyte Esterase TRACEH, Urine RBC (Auto) 3+H, Urine RBC 10-25H, Urine WBC 2-5, Urine Squamous Epithelial Cells RARE, Urine Crystals NONE, Urine Bacteria FEWH, Urine Casts PRESENT, Urine Hyaline Casts 2-5H, Urine Mucus SMALLH, Urine Culture Indicated YES, Sodium Level 134L, Potassium Level 3.1L, Chloride Level 94L, Carbon Dioxide Level 24, Anion Gap 16H , Blood Urea Nitrogen 13, Creatinine 1.18, Estimat Glomerular Filtration Rate 71, BUN/Creatinine Ratio 11, Glucose Level 150H, Calcium Level 10.2H, Corrected Calcium 10.4H, Total Bilirubin 6.3H, Aspartate Amino Transf (AST/SGOT) 208H, Alanine Aminotransferase (ALT/SGPT) 284H, Alkaline Phosphatase 384H, C-Reactive Protein High Sensitivity 35.34H, Total Protein 7.9, Albumin 3.8, Lipase 29 05/16/22 15:50: Lactic Acid Level 0.84 05/17/22 05:04: White Blood Count 4.1L, Red Blood Count 3.17L, Hemoglobin 11.1L, Hematocrit 32L, Mean Corpuscular Volume 101H, Mean Corpuscular Hemoglobin 35H, Mean Corpuscular Hemoglobin Concent 35, Red Cell Distribution Width 12.5, Platelet Count 191, Mean Platelet Volume 10.0, Immature Granulocyte % (Auto) 1, Neutrophils (%) (Auto) 54, Lymphocytes (%) (Auto) 19, Monocytes (%) (Auto) 26H, Eosinophils (%) (Auto) 1, Basophils (%) (Auto) 1, Neutrophils # (Auto) 2.2, Lymphocytes # (Auto) 0.8L, Monocytes # (Auto) 1.1H, Eosinophils # (Auto) 0.0, Basophils # (Auto) 0.0, Immature Granulocyte # (Auto) 0.0, Sodium Level 137, Potassium Level 3.3L, Chloride Level 100, Carbon Dioxide Level 22, Anion Gap 15H, Blood Urea Nitrogen 11, Creatinine 1.05, Estimat Glomerular Filtration Rate 81, BUN/Creatinine Ratio 10, Glucose Level 112H, Calcium Level 8.9, Corrected Calcium 9.9, Total Bilirubin 5.0H, Aspartate Amino Transf (AST/SGOT) 294H, Alanine Aminotransferase (ALT/SGPT) 298H, Alkaline Phosphatase 368H, Total Protein 6.0L, Albumin 2.8L Radiology Date of Exam:05/16/22 US GALLBLADDER [id number] PROCEDURE: US Gallbladder. TECHNIQUE: Multiple real-time grayscale images were obtained over the right upper quadrant in various projections. INDICATION: Right upper quadrant pain. FINDINGS: Liver is normal in size measuring 14.6 cm. Portal vein is patent and shows normal direction of flow. No liver mass is identified. The gallbladder appears to be thick walled measuring 3-4 mm. There is gallbladder sludge present. There appears to be a stone in the region of the gallbladder neck. No pericholecystic fluid is identified. The extrahepatic bile duct is somewhat dilated at 8 mm. No definite stone is seen. The pancreas, aorta, and IVC were obscured by bowel gas. Right kidney is unremarkable. There is no ascites. Patient did have a positive sonographic Louise's sign. IMPRESSION: Findings suspicious for cholelithiasis and acute cholecystitis. The extrahepatic bile duct is somewhat dilated. No definite common duct stone is detected but cannot be entirely excluded. Dictated by: Dictated on workstation # [id number] Dict: 05/16/22 1454 Trans: 05/16/22 1558 [id number] Interpreted by: MARLA SUTHERLAND MD Electronically signed by: MARLA SUTHERLAND MD 05/16/22 1558 Date of Exam:05/16/22 CHEST PA/LAT (2 VIEW) INDICATION: Right upper quadrant pain with shortness of air. COMPARISON: Exam compared to 02/19/2016. FINDINGS: Lungs are clear. No failure, effusion, or pneumothorax. A previous right IJ catheter has been removed. IMPRESSION: Normal two-view chest. Dictated by: Dictated on workstation # [id number] Dict: 05/16/22 1524 Trans: 05/16/22 1646 [id number] Interpreted by: BILL SILVESTRE Electronically signed by: BILL SILVESTRE 05/16/22 1646 Procedures ERCP conducted in [place] on 05/16/2022 Assessment/Plan Assessment/Plan Admission Diagonsis Acute cholecystitis Assessment/Plan Acute cholecystitis secondary to biliary obstruction Multiple myeloma Hematuria Hypertension Chronic constipation Patient underwent ERCP in [place] yesterday. Plan for laproscopic cholecystectomy on 05/18/2022. Continue piperacillin/tazobactam, morphine for pain management, and LR for fluid resuscitation. Multiple Myeloma is treated with Revlimid, 20 days on and 7 days off, managed by Dr. Hernandez. Finished last 21 day course on 05/15/2022. Hypertension treated with enalapril and amlodipine BRE JAY DO 05/17/22 1155: History of Present Illness History of Present Illness Time Seen by Provider: 11:19 History of Present Illness Surgery asked to admit pt regarding Acute Cholecystitis with Choledochalithiasis and possible obstruction. HPI per ED: This is 62-year-old gentleman presents to the emergency room via private vehicle with concerns about rather intense right upper quadrant pain that is worse with inspiration and moving. He is undergoing active treatment for multiple myeloma. Patient first noted symptoms of illness on Monday night May 14, 3 days ago. He was having night sweats and right upper quadrant pain after eating some chili. Symptoms have worsened since then. He denies any constipation, diarrhea, nausea, or vomiting. Pain does not change with eating. He does feel a bit short of breath and has had some mild cough. He also noted hematuria and notes that he is on Xarelto due to prior history of DVT. He is taking chemotherapy for multiple myeloma and comments he was told Revlimid increases risk for DVT. He takes this medication in cycles of 20 days on and 7 days off. He just finished a 21-day course yesterday. Patient is noted to have tremors which he states are chronic and related to multiple myeloma treatment, and they worsen when he is in pain. His primary care provider is Dr. Aram Rose and his oncologist is Dr. Sadler. Patient's last dose of Xarelto was this morning and his last oral intake was a chicken sandwich at noon with water. When I saw pt this afternoon he was lying in his bed comfortably. Last night he got sent to [place] for ERCP; pt states they "cleaned me out, found at least two stones and left a stent". He is feeling much better today, "the pain last night was excruciating". He states he has never had RUQ pain before this. Pain did radiate into right shoulder. Allergies and Home Medications Allergies Coded Allergies: No Known Drug Allergies (Unverified , 10/23/15) Patient Home Medication List Home Medication List Reviewed: Yes Amlodipine Besylate (Amlodipine Besylate) 10 Mg Tablet, 10 MG PO DAILY, (Reported) Entered as Reported by: MARTHA JACOBSON on 05/17/22 1017 Last Action: Reviewed Calcium Carbonate/Vitamin D3 (Calcium 600 + Vit D Caplet) 600 Mg Calcium-10 Mcg (400 Unit) Tablet, 2 EACH PO DAILY, (Reported) Entered as Reported by: MARTHA JACOBSON on 05/17/22 1017 Last Action: Reviewed Enalapril/Hydrochlorothiazide (Enalapril-Hctz 5-12.5 mg Tab) 5 Mg-12.5 Mg Tabl et, 1 EA PO DAILY, (Reported) Entered as Reported by: MARTHA JACOBSON on 05/17/221016 Last Action: Reviewed Fluoxetine HCl (Fluoxetine HCl) 40 Mg Capsule, 40 MG PO DAILY, (Reported) Entered as Reported by: MARTHA JACOBSON on 05/17/221016 Last Action: Reviewed Hydrocodone/Acetaminophen (Hydrocodone-Acetamin 7.5-325) 7.5 Mg-325 Mg Tablet, 1 EA PO Q6H PRN for PAIN-MODERATE (5-7), (Reported) Entered as Reported by: MARTHA JACOBSON on 05/17/221016 Last Action: Reviewed Lenalidomide (Revlimid) 10 Mg Capsule, 10 MG PO DAILY, (Reported) Entered as Reported by: MARTHA JACOBSON on 05/17/221016 Last Action: Reviewed Rivaroxaban (Xarelto) 10 Mg Tablet, 10 MG PO DAILY, (Reported) Entered as Reported by: MARTHA JACOBSON on 05/17/221016 Last Action: Reviewed Discontinued Medications Amlodipine Besylate (Norvasc) 10 Mg Tablet, 10 MG PO DAILY, (Reported) Discontinued Reason: No Longer Taking Entered as Reported by: SWATHI DERAS on 10/23/151135 Last Action: Discontinued Enalapril Maleate (Enalapril Maleate) 5 Mg Tablet, 5 MG PO DAILY, (Reported) Discontinued Reason: No Longer Taking Entered as Reported by: SWATHI DERAS on 10/23/15 1156 Last Action: Discontinued Fluoxetine HCl (Prozac) 40 Mg Capsule, 40 MG PO DAILY, (Reported) Discontinued Reason: No Longer Taking Entered as Reported by: SWATHI DERAS on 10/23/151135 Last Action: Discontinued Testosterone Cypionate (Testosterone Cypionate) 100 Mg/1 Ml Vial, 100 MG IM MONTHLY, (Reported) Discontinued Reason: No Longer Taking Entered as Reported by: SWATHI DERAS on 10/23/151137 Last Action: Discontinued Past Qvmpmbk-Emfhpm-Aieqpy Hx Patient Social History Smoking Status: Never a Smoker Alcohol Use?: Yes (4 drinks a week) Surgeries History of Surgeries: Yes (Indirect hernia repair at 20 or 21. ) Surgeries: Abdominal (Pt also reports some type of surgery as ), Orthopedic (Lumbar kyphoplasty) Respiratory History of Respiratory Disorde: No Cardiovascular History of Cardiac Disorders: Yes Cardiac Disorders: Deep Vein Thrombosis (Around 7 years ago for which he is now treated with Xarelto), Hypertension Neurological History of Neurological Disord: Yes Neurological Disorders: Neuropathy Genitourinary History of Genitourinary Disor: Yes (Hematuria) Genitourinary Disorders: Prostate Problems Gastrointestinal History of Gastrointestinal Di: Yes Gastrointestinal Disorders: Chronic Constipation, Gall Bladder Disease Musculoskeletal History of Musculoskeletal Dis: Yes Musculoskeletal Disorders: Degenerate Disk Disease, Chronic Back Pain Endocrine History of Endocrine Disorders: No HEENT History of HEENT Disorders: No Loss of Vision: Denies Hearing Impairment: Denies Cancer History of Cancer: Yes (multiple myeloma) Psychosocial History of Psychiatric Problem: Yes Behavioral Health Disorders: Depression (Well controlled with Prozac) Integumentary History of Skin or Integumenta: No Family Medical History Significant Family History: Cancer (5 uncles - of "blood cancers"), Other Conditions/Hx (Denied parents have DM or CAD) Review of Systems-General Constitutional: diaphoresis (Night sweats since this weekend); No dizziness; weakness EENTM: No mouth swelling, No epistaxis, No throat swelling Respiratory: No cough, No hemoptysis, No short of breath Cardiovascular: No chest pain, No edema, No palpitations Gastrointestinal: abdominal pain (RUQ, severe, constant at 10/10 on arrival to the ER.), constipation (Chronic constipation due to prescribed hydrocodone); No hematemesis, No nausea, No vomiting Genitourinary: dysuria, hematuria (Gross blood in the urine since Monday morning) Musculoskeletal: back pain (Chronic back pain), joint pain, muscle stiffness Skin: No change in color, No change in hair/nails Psychiatric/Neurological: Depressed; Denies Headache; Tremors (Related to his chemotherapy, worsens with pain.) Physical Exam-General Problems Physical Exam General Appearance: WD/WN, mild distress (secondary pain - very mild) Eyes: Bilateral Eye PERRL, Bilateral Eye EOMI HEENT: pharynx normal, scleral icterus (R), scleral icterus (L) Neck: non-tender, supple Respiratory: chest non-tender, lungs clear, normal breath sounds, no respiratory distress, no accessory muscle use Cardiovascular: regular rate, rhythm, no edema, no gallop, no murmur Peripheral Pulses: 2+ Dorsalis Pedis (R), 2+ Left Dors-Pedis (L), 2+ Radial Pulses (R), 2+ Radial Pulses (L) Gastrointestinal: soft; No guarding, No rebound; tenderness (Positive Louise's Sign), hernia (small umbilical) Rectal: deferred Back: no CVA tenderness, no vertebral tenderness Extremities: non-tender, no pedal edema, no calf tenderness 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 Plan for laparoscopic cholecystectomy with possible cholangiogram, possible open and all other indicated procedures. Continue piperacillin/tazobactam, morphine for pain management, and LR for fluid resuscitation. Multiple Myeloma is treated with Revlimid, 20 days on and 7 days off, managed by Dr. Hernandez. Finished last 21 day course on 05/15/2022. Hypertension treated with enalapril and amlodipine. Clear liquids and NPO after midnight. Will plan surgery for tomorrow, waiting 48 hours for the Xarelto to dissipate. Will give Lovenox. Will get consent for procedure, make pt NPO after midnight. Discussed surgery with pt; risks and complications not limited to pain, bleeding, infection, scar, damage to bowel or bile duct and need for further procedure. All questions answered to his satisfaction. Supervisory-Addendum Brief Verification & Attestation Participated in pt care: history, MDM, physical Personally performed: exam, history, MDM, supervision of care Care discussed with: Medical Student Procedures: n/a Verification and Attestation of Medical Student E/M Service A medical student performed and documented this service. I then reviewed and verified all information documented by the medical student and made modifications to such information, when appropriate. I personally performed a physical exam, medical decision making and then discussed any differences between the notes and made revisions as necessary to create one note. Bre Jay , 05/17/22 , 12:09 IBAN TOLBERT May 17, 2022 08:58 BRE JAY DO May 17, 2022 11:55
[2022-05-17] MEDS ORDERED: LENA10CA PO (10:17)
[2022-05-17] MEDS ORDERED: CALC-694 PO (10:17)
[2022-05-17] MEDS ORDERED: AMLO-251 PO (10:17)
[2022-05-17] MEDS ORDERED: RIVA10TA PO (10:17)
[2022-05-17] MEDS ORDERED: FLUO40CA PO (10:17)
[2022-05-17] MEDS ORDERED: ENAL1TAB14 PO (10:17)
[2022-05-17] MEDS ORDERED: HYDR-3817 PO (10:17)
[2022-05-17 11:13] VITALS: BP 126/68
[2022-05-17] MEDS: ENOXAPARIN 40 MG/0.4 ML (LOVENOX) SYR SC SCH (12:56)
[2022-05-17] MEDS ORDERED: DOCUSATE SODIUM 100 MG (COLACE) CAP PO NR (14:30)
[2022-05-17 15:55] VITALS: BP 116/60
[2022-05-17 20:03] VITALS: BP 154/81
[2022-05-18] VITALS (13 sets, daily range): BP systolic 100–151; BP diastolic 53–85
[2022-05-18] MEDS: morphine INJ 4 MG/ML 1 ML (VIAL/SYRINGE) IVP PRN ×8 (00:02→23:42)
[2022-05-18] MEDS: LACTATED RINGERS 1,000 ML IV SCH ×4 (02:40→22:15)
--- NOTE | 2022-05-18 07:42 | Progress Note - Surgery ---
IBAN TOLBERT 05/18/22 0742: Subjective Date Seen by a Provider: May 18, 2022 Time Seen by a Provider: 07:35 Subjective/Events-last exam Our patient is a 62 year old man presenting for cholecystitis secondary to biliary tract obstruction. This morning he complains of increased pain at around a 7/10, fatigue, and malaise. He denies nausea, vomiting, visual changes, chills, night sweats, constipation, dyspnea, hematuria, cough, weakness, or numbness. He consents to his operation and is eager to get started this morning. He states that he had a bowel movement yesterday evening that was soft in consistency. Review of Systems General: No Chills, No Night Sweats; Fatigue, Malaise HEENT: No Head Aches, No Visual Changes Pulmonary: No Dyspnea, No Cough Cardiovascular: No: Chest Pain, Palpitations, Lt Headedness Gastrointestinal: Abdominal Pain; No: Nausea, Vomiting, Diarrhea, Constipation Genitourinary: No Dysuria, No Hematuria Neurological: No: Weakness, Numbness, Confusion Focused Exam Sepsis Stage: Ruled Out Reason for ruling out sepsis: Patient does not fit SIRS criteria for sepsis socorro gnosis. Lactate Level 05/16/22 15:50: Lactic Acid Level 0.84 Objective Exam Vital Signs Date Time Temp Pulse Resp B/P (MAP) Pulse Ox O2 Delivery O2 Flow Rate FiO2 05/18/22 06:15 36.6 05/18/22 04:11 36.6 05/18/22 03:41 36.6 05/18/22 03:40 36.6 66 18 116/65 (82) 95 Room Air 05/18/22 00:32 37.1 05/18/22 00:02 37.1 67 20 101/53 (69) Room Air 05/18/22 00:02 37.1 05/17/22 21:13 37.1 05/17/22 20:43 37.1 05/17/22 20:03 37.1 62 20 154/81 (105) 96 Room Air 05/17/22 20:00 Room Air 05/17/22 19:57 93 Room Air 0.00 05/17/22 15:55 37.2 62 18 116/60 (78) 96 Room Air 05/17/22 11:13 36.4 59 18 126/68 (87) 95 Room Air 05/17/22 08:00 97 Room Air 0.00 I & O 05/18/22 07:00 Intake Total 2001 ml Balance 2001 ml Capillary Refill : Less Than 3 Seconds General Appearance: Chronically ill, Mild Distress HEENT: PERRL/EOMI; No Photophobia; Scleral Icterus (L), Scleral Icterus (R) Neck: Non Tender, Supple; No Lymphadenopathy (L), No Lymphadenopathy (R), No Thyromegaly Respiratory: Chest Non Tender, Lungs Clear, Normal Breath Sounds, No Accessory Muscle Use, No Respiratory Distress Cardiovascular: Regular Rate, Rhythm, No Edema, No Gallop, No Murmur, Normal Peripheral Pulses Peripheral Pulses: 2+ Dorsalis Pedis (R), 2+ Left Dors-Pedis (L), 2+ Radial Pulses (R), 2+ Radial Pulses (L) Gastrointestinal: normal bowel sounds, soft; No guarding, No rebound; tenderness (Positive Louise's Sign), hernia (small umbilical) Extremity: Normal Capillary Refill, Normal Inspection, Non Tender, No Calf Tenderness, No Pedal Edema Neurologic/Psychiatric: Alert, Oriented x3, No Motor/Sensory Deficits, Normal Mood/Affect Skin: Normal Color, Warm/Dry Lymphatic: No Adenopathy Results Lab Microbiology 05/16/22 Blood Culture - Preliminary, Resulted No growth 05/16/22 Urine Culture - Final, Complete Mixed Bacterial Maira Assessment/Plan Assessment/Plan Admission Diagonsis Acute cholecystitis Assessment/Plan Acute cholecystitis secondary to biliary obstruction Long-term Anticoagulation Multiple myeloma Hematuria Hypertension Chronic constipation Patient underwent ERCP in [place] two days ago. Plan for laparoscopic cholecystectomy with possible cholangiogram, possible open and all other indicated procedures. Continue piperacillin/tazobactam, morphine for pain management, and LR for fluid resuscitation. Multiple Myeloma is treated with Revlimid, 20 days on and 7 days off, managed by Dr. Hernandez. Finished last 21 day course on 05/15/2022. Hypertension treated with enalapril and amlodipine. Patient is scheduled for a cholecystectomy this morning, continue morphine for pain management. waiting 48 hours for the Xarelto to dissipate. Patient was administered lovenox yesterday. Will get consent for procedure, patient was npo after midnight. Discussed surgery with pt; risks and complications not limited to pain, bleeding, infection, scar, damage to bowel or bile duct and need for further procedure. All questions answered to his satisfaction. BRE JAY DO 05/18/22 1050: Subjective Time Seen by a Provider: 10:45 Subjective/Events-last exam Pt seen and examined, no new complaints but he thinks his pain is worse. He is ready for surgery and has been NPO since midnight. Review of Systems General: No Chills, No Night Sweats; Fatigue, Malaise Pulmonary: No Dyspnea, No Cough Cardiovascular: No: Chest Pain, Palpitations Gastrointestinal: Abdominal Pain; No: Nausea, Vomiting, Diarrhea, Constipation Genitourinary: No Dysuria Neurological: Weakness, Numbness Objective Exam General Appearance: Chronically ill, Mild Distress HEENT: PERRL/EOMI, Scleral Icterus (L), Scleral Icterus (R) Neck: Non Tender, Supple Respiratory: Chest Non Tender, Lungs Clear, Normal Breath Sounds, No Accessory Muscle Use, No Respiratory Distress Cardiovascular: Regular Rate, Rhythm, No Murmur Gastrointestinal: soft; No guarding, No rebound; tenderness (Positive Louise's Sign), hernia (small umbilical) Extremity: Non Tender, No Calf Tenderness, No Pedal Edema Neurologic/Psychiatric: Alert, Oriented x3 Assessment/Plan Assessment/Plan Assessment/Plan Acute cholecystitis secondary to biliary obstruction Long-term Anticoagulation Multiple myeloma Hematuria Hypertension Chronic constipation Patient underwent ERCP in [place] two days ago. Plan for laparoscopic cholecystectomy with possible cholangiogram, possible open and all other indicated procedures. Continue piperacillin/tazobactam, morphine for pain management, and LR for fluid resuscitation. Multiple Myeloma is treated with Revlimid, 20 days on and 7 days off, managed by Dr. Hernandez. Finished last 21 day course on 05/15/2022. Hypertension treated with enalapril and amlodipine. Patient is scheduled for a cholecystectomy this morning, continue morphine for pain management. Waiting 48 hours for the Xarelto to dissipate. Patient was administered lovenox yesterday. Supervisory-Addendum Brief Verification & Attestation Participated in pt care: history, MDM, physical Personally performed: exam, history, MDM, supervision of care Care discussed with: Medical Student Procedures: n/a Verification and Attestation of Medical Student E/M Service A medical student performed and documented this service. I then reviewed and verified all information documented by the medical student and made modifications to such information, when appropriate. I personally performed a physical exam, medical decision making and then discussed any differences between the notes and made revisions as necessary to create one note. Bre Jay , 05/18/22 , 10:49 IBAN TOLBERT May 18, 2022 07:42 BRE JAY DO May 18, 2022 10:50
[2022-05-18] MEDS: PANTOPRAZOLE 40 MG (PROTONIX) VIAL IV SCH (08:14)
[2022-05-18] MEDS: PIPERACILLIN SODIUM/TAZOBACTAM 4.5 GM in NS (IVPB) 100 ML IV SCH ×3 (08:14→23:42)
[2022-05-18] MEDS: DOCUSATE SODIUM 100 MG (COLACE) CAP PO SCH (09:00)
[2022-05-18] MEDS ORDERED: ceFAZolin INJECTION 2,000 MG ONE (10:42)
[2022-05-18] MEDS ORDERED: BUP/EPI 0.5% 1:200,000 (SENSORCAINE) 30 ML VIAL ONE (10:46)
[2022-05-18] MEDS ORDERED: ONDANSETRON 4 MG/2 ML (SDV) Z0FRAN ONE (10:50)
[2022-05-18] MEDS ORDERED: LIDOCAINE PF 2% 5 ML (XYLOCAINE) VIAL ONE (10:50)
[2022-05-18] MEDS ORDERED: SEVOFLURANE (ULTANE) 15 ML INHAL SOLN ONE ×2 (10:50→12:02)
[2022-05-18] MEDS ORDERED: MIDAZOLAM 2 MG/2 ML (VERSED) VIAL ONE (10:50)
[2022-05-18] MEDS ORDERED: proPOfol 200 MG/20 ML (DIPRIVAN) VIAL IV ONE (10:50)
[2022-05-18] MEDS ORDERED: fentaNYL INJ 100 MCG/2 ML AMP ONE (10:50)
[2022-05-18] MEDS ORDERED: LACTATED RINGERS 1,000 ML IV PRN (11:15)
[2022-05-18] MEDS ORDERED: ceFAZolin INJECTION 2,000 MG in NS (IVPB) 50 ML IV ONE (11:30)
[2022-05-18] MEDS ORDERED: ROCURONIUM 50 MG/5 ML (ZEMURON) VIAL IV ONE (12:13)
[2022-05-18] MEDS: ENOXAPARIN 40 MG/0.4 ML (LOVENOX) SYR SC SCH (12:15)
[2022-05-18] MEDS ORDERED: IOHEXOL 300 MG/ML 100 ML (OMNIPAQUE 300) VIAL INJ ONE (12:15)
--- NOTE | 2022-05-18 12:17 | Progress Note-Post Operative ---
Post-Operative Progess Note Surgeon (s)/Marketing Communications Coordinator (s) Surgeon BRE JAY DO Marketing Communications Coordinator: [place] Pre-Operative Diagnosis Acute Cholecystitis/Cholelithiasis with Choledochalithiasis Post-Operative Diagnosis Same plus necrotic Gallbladder, not obstructed Procedure & Operative Findings Date of Procedure 05/18/22 Procedure Performed/Findings PROCEDURE: Laparoscopic cholecystectomy with intraoperative cholangiogram. COMPLICATIONS: None. PROCEDURE: The patient was taken to the operating suite and was prepped and draped in a sterile fashion. A surgical pause was performed. Just superior to the umbilicus, a 12 mm incision was made. Dissection was taken down to the fascia,which was then scored and grasped with a Sunita and the abdomen was then entered. An 0 Vicryl suture was placed in a [id number] fashion and a Nguyen trocar was placed a nd secured. Pneumoperitoneum was achieved. A 5mm trochar placed in the subxyphoid and 2 in the right upper quadrant. The gallbladder was not visualized, because it was under a large amount of omental adhesions; this usually indicates previous gall- bladder attacks. Adhesions were taken down enough to grasp the gallbladder at the fundus and elevated in the superior direction. The adhesions were taken down with the bovie cautery. Grasped at Bonner's pouch and pulled in the infero-lateral direction. Then dissected out the cystic duct, it was very short and could see the common duct very close to it. Clip was placed on the distal portion of the cystic duct which was then partially transected. An arrow catheter was inserted into the duct. The cholangiogram was then performed. Multiple filling defects (stones) were seen; however, contrast made its way into the duodenum and could the stent that was left in place. Catheter removed and clips were placed on proximal portion of the cystic duct and then the duct was then transected. The cystic artery was then clipped proximally and distally and dissected; cut the artery with scissors. Hook cautery was used to dissect the gallbladder from the gallbladder fossa; while doing this could see a very thickened gallbladder wall and necrotic portions of the wall; it was also very intra- hepatic. I had to turn the bovie up to achieve hemostasis; there was a venous sinus in the fossa. The gallbladder was placed in an Endobag and removed through the 12 mm trocar site. The abdomen was then reinspected. There was some scant oozing from the bed of the liver and a piece of surgicel was placed. Copious amounts of irrigation were used to irrigate the abdomen and there were no signs of active bleeding. Hemostasis had been achieved. The 12 mm fascial defect was then closed with 0 Vicryl suture that had been placed in a [id number] fashion. The abdomen was then desufflated, the trocars were removed. The abdomen was then washed and dried. The skin was then closed using 4-0 Monocryl in a subcuticular fashion. The abdomen was washed and dried and Skin Affix was place over incisions. Patient tolerated the procedure well without any complications and was taken to the recovery room in stable condition. Dr. Shook assisted on this case helping to make incisions, close incisions, identify anatomy and hold anatomy out of the way. Anesthesia Type GET Estimated Blood Loss Estimated blood loss (mL): less than 30ml Specimens/Packing Specimens Removed GB and contents BRE JAY DO May 18, 2022 12:17
[2022-05-18] MEDS ORDERED: morphine INJ 10 MG/ML 1ML (SYR OR VIAL) IVP ONE (12:45)
[2022-05-18] MEDS ORDERED: fentaNYL INJ 100 MCG/2 ML AMP IVP ONE (12:45)
[2022-05-18] MEDS ORDERED: ONDANSETRON 4 MG/2 ML (SDV) Z0FRAN IVP PRN (12:45)
[2022-05-18] MEDS ORDERED: MEPERIDINE (DEMEROL) INJ 50 MG/ML IVP ONE (12:45)
[2022-05-19] MEDS: morphine INJ 4 MG/ML 1 ML (VIAL/SYRINGE) IVP PRN ×2 (02:52→06:49)
[2022-05-19 04:50] VITALS: BP 99/54
[2022-05-19 05:23] LABS: BASOPHILS % (AUTO) 1 % (0-10); EOSINOPHILS % (AUTO) 0 % (0-10); HEMATOCRIT 28 % (40-54); HEMOGLOBIN 9.6 g/dL (13.3-17.7); LYMPHOCYTES # (AUTO) 0.6 10^3/uL (1.0-4.0); LYMPHOCYTES % (AUTO) 12 % (12-44); MEAN CORPUSCULAR HEMOGLOBIN 35 pg (25-34); MEAN CORPUSCULAR HGB CONC 34 g/dL (32-36); MEAN CORPUSCULAR VOLUME 102 fL (80-99); MEAN PLATELET VOLUME 9.9 fL (9.0-12.2); MONOCYTES # (AUTO) 1.3 10^3/uL (0.0-1.0); MONOCYTES % (AUTO) 23 % (0-12); NEUTROPHILS # (AUTO) 3.5 10^3/uL (1.8-7.8); NEUTROPHILS % (AUTO) 64 % (42-75); PLATELET COUNT 195 10^3/uL (130-400); WHITE BLOOD COUNT 5.4 10^3/uL (4.3-11.0)
[2022-05-19 05:43] LABS: ALBUMIN 2.5 GM/DL (3.2-4.5)
[2022-05-19 05:46] LABS: TOTAL PROTEIN 5.3 GM/DL (6.4-8.2)
[2022-05-19 05:48] LABS: BILIRUBIN,TOTAL 1.3 MG/DL (0.1-1.0)
[2022-05-19 05:50] LABS: CREATININE SERUM 0.78 MG/DL (0.60-1.30)
[2022-05-19] MEDS: LACTATED RINGERS 1,000 ML IV SCH (05:58)
--- NOTE | 2022-05-19 07:40 | Progress Note - Surgery ---
IBAN TOLBERT 05/19/22 0740: Subjective Date Seen by a Provider: May 19, 2022 Time Seen by a Provider: 07:35 Subjective/Events-last exam Our patient is a 62 year old man on post-op day one after a cholecystectomy performed on 05/18/2022. This procedure was performed due to acute cholecystitis secondary to biliary tract obstruction. The patient states that he is feeling much better today and rates his pain as a 5/10, intermittent, sharp and exacerbated by coughing. He has already had multiple bowel movements that were mostly liquid. One at 5 and one at 6 this morning. He has not eaten since his surgery. He denies nausea, vomiting, chills, headaches, vision changes. He is eager to know when he will be discharged and wants to begin transitioning to solid foods due to his liquid bowel movements. Review of Systems General: No Chills, No Night Sweats; Fatigue (Chronic) HEENT: No Head Aches, No Visual Changes Pulmonary: No Dyspnea, No Pleuritic Chest Pain Cardiovascular: No: Chest Pain, Lt Headedness Gastrointestinal: Abdominal Pain (Pain is no longer constant, exacerbated by cough), Diarrhea (Runny stools this morning); No: Nausea, Vomiting, Hematochezia Genitourinary: No Dysuria; Frequency; No Hematuria Neurological: No: Weakness, Numbness, Confusion Focused Exam Sepsis Stage: Ruled Out Reason for ruling out sepsis: Patient does not meet SIRS criteria for sepsis diagnosis Lactate Level 05/16/22 15:50: Lactic Acid Level 0.84 Objective Exam Vital Signs Date Time Temp Pulse Resp B/P (MAP) Pulse Ox O2 Delivery O2 Flow Rate FiO2 05/19/22 06:49 37.1 05/19/22 04:50 37.1 65 20 99/54 (69) 94 Room Air 05/19/22 03:22 37.0 05/19/22 02:52 37.0 05/18/22 23:45 37.0 63 18 118/57 (77) 94 Room Air 05/18/22 23:42 37.4 05/18/22 22:53 94 Room Air 0.00 05/18/22 22:13 37.4 05/18/22 21:43 37.4 05/18/22 20:24 Room Air 05/18/22 19:50 37.4 05/18/22 19:20 37.4 05/18/22 19:05 37.4 64 18 107/61 (76) 94 Room Air 05/18/22 16:07 36.8 62 18 113/63 (80) 93 Room Air 05/18/22 13:41 36.8 60 17 111/56 (74) 92 Room Air 05/18/22 13:30 Room Air 05/18/22 13:20 36.5 20 112/61 (78) 92 Room Air 05/18/22 13:15 Room Air 05/18/22 13:10 21 113/63 (80) 98 OxyMask 10.00 05/18/22 13:00 18 121/64 (83) 97 OxyMask 10.00 05/18/22 13:00 OxyMask 10.00 05/18/22 12:50 15 130/69 (89) 96 OxyMask 10.00 05/18/22 12:45 OxyMask 10.00 05/18/22 12:40 16 151/85 (107) 96 OxyMask 10.00 05/18/22 12:29 37.0 16 130/69 (89) 94 OxyMask 10.00 05/18/22 12:29 OxyMask 10.00 05/18/22 08:08 37.0 62 18 100/55 (70) 95 Room Air 05/18/22 08:00 Room Air I & O 05/19/22 07:00 Intake Total 4050 ml Balance 4050 ml Capillary Refill : Less Than 3 Seconds General Appearance: No Apparent Distress, Chronically ill HEENT: PERRL/EOMI, Scleral Icterus (L) (Improved slightly from yesterday), Scleral Icterus (R) (Improved slightly from yesterday) Neck: Non Tender, Supple; No Carotid Bruit, No Lymphadenopathy (L), No Lymphadenopathy (R), No Thyromegaly Respiratory: Chest Non Tender, Lungs Clear, Normal Breath Sounds, No Accessory Muscle Use, No Respiratory Distress Cardiovascular: Regular Rate, Rhythm, No Edema, No Gallop, No Murmur Peripheral Pulses: 2+ Dorsalis Pedis (R), 2+ Left Dors-Pedis (L), 2+ Radial Pulses (R), 2+ Radial Pulses (L) Gastrointestinal: soft, no organomegaly, no pulsatile mass; No guarding, No rebound; tenderness (Residual tenderness to palpation but much improved from yesterday), hernia (small umbilical) Extremity: Non Tender, No Calf Tenderness, No Pedal Edema; No Calf Tenderness, No Pedal Edema Neurologic/Psychiatric: Alert, Oriented x3 Skin: Normal Color, Warm/Dry Lymphatic: No Adenopathy (Cervical and axillary) Other comments Surgical sites are intact and firm with no dehiscence of sutures, mild tenderness to palpation. Sites are not erythematous or warm to touch. Results Lab Laboratory Tests 05/19/22 05:13: White Blood Count 5.4, Red Blood Count 2.76L, Hemoglobin 9.6L, Hematocrit 28L, Mean Corpuscular Volume 102H, Mean Corpuscular Hemoglobin 35H, Mean Corpuscular Hemoglobin Concent 34, Red Cell Distribution Width 13.1, Platelet Count 195, Mean Platelet Volume 9.9, Immature Granulocyte % (Auto) 1, Neutrophils (%) (Auto) 64, Lymphocytes (%) (Auto) 12, Monocytes (%) (Auto) 23H, Eosinophils (%) (Auto) 0, Basophils (%) (Auto) 1, Neutrophils # (Auto) 3.5, Lymphocytes # (Auto) 0.6L, Monocytes # (Auto) 1.3H, Eosinophils # (Auto) 0.0, Basophils # (Auto) 0.0, Immature Granulocyte # (Auto) 0.0, Sodium Level 133L, Potassium Level 3.0L, Chloride Level 99, Carbon Dioxide Level 25, Anion Gap 9, Blood Urea Nitrogen 8, Creatinine 0.78, Estimat Glomerular Filtration Rate 102, BUN/Creatinine Ratio 10, Glucose Level 152H, Calcium Level 8.0L, Corrected Calcium 9.2, Total Bilirubin 1.3H, Aspartate Amino Transf (AST/SGOT) 53H, Alanine Aminotransferase (ALT/SGPT) 146H, Alkaline Phosphatase 229H, Total Protein 5.3L, Albumin 2.5L Microbiology 05/17/22 MRSA Screen - Final, Complete MRSA not isolated 05/16/22 Blood Culture - Preliminary, Resulted No growth 05/16/22 Urine Culture - Final, Complete Mixed Bacterial Maira Procedures Patient underwent lapascopic cholecystectomy with repeat ERCP in the operating room on 05/18/2022 Assessment/Plan Assessment/Plan Admission Diagonsis Acute cholecystitis Assessment/Plan Acute cholecystitis secondary to biliary obstruction Long-term Anticoagulation Multiple myeloma Hematuria Hypertension Chronic constipation Patient underwent successful laparascopic cholecystectomy and repeat ERCP in the operating room on 05/18/2022. Continue piperacillin/tazobactam, morphine for pain management, and LR for fluid resuscitation. Multiple Myeloma is treated with Revlimid, 20 days on and 7 days off, managed by Dr. Hernandez. Finished last 21 day course on 05/15/2022. Hypertension treated with enalapril and amlodipine. Continue morphine for pain management. Patient can begin a slow transition to solid foods. Hematuria has resolved for the time being. Plan for discharge today or tomorrow. BRE RUDD DO 05/19/22 0925: Subjective Time Seen by a Provider: 09:01 Subjective/Events-last exam Pt seen and examined, states he is doing much better today. Pain is improved, tolerating clears and having BMs (liquid). Review of Systems General: Fatigue (Chronic) Pulmonary: No Dyspnea Cardiovascular: No: Chest Pain Gastrointestinal: Abdominal Pain (Pain is no longer constant, exacerbated by cough); No: Nausea, Vomiting Genitourinary: No Dysuria; Frequency Objective Exam General Appearance: No Apparent Distress HEENT: PERRL/EOMI, Scleral Icterus (L) (Improved slightly from yesterday), Scleral Icterus (R) (Improved slightly from yesterday) Respiratory: Lungs Clear, Normal Breath Sounds, No Accessory Muscle Use, No Respiratory Distress Cardiovascular: Regular Rate, Rhythm, No Murmur Gastrointestinal: soft; No guarding, No rebound; tenderness (Residual tenderness to palpation but much improved from yesterday), hernia (small umbilical), other (incisions are c/d/i) Extremity: No Calf Tenderness, No Pedal Edema Assessment/Plan Assessment/Plan Assessment/Plan S/P Lap georgette with IOC for Acute cholecystitis secondary to biliary obstruction Long-term Anticoagulation - hold for one more day Multiple myeloma Hematuria -resolved Hypertension Chronic constipation Pt will be switched to oral pain meds, IV to KVO, increase diet. Pt encouraged to ambulate and use IS. If he tolerates diet and oral pain meds he can go home today and f/u in my office in one week. Supervisory-Addendum Brief Verification & Attestation Participated in pt care: history, MDM, physical Personally performed: exam, history, MDM, supervision of care Care discussed with: Medical Student Procedures: n/a Verification and Attestation of Medical Student E/M Service A medical student performed and documented this service. I then reviewed and verified all information documented by the medical student and made modifications to such information, when appropriate. I personally performed a physical exam, medical decision making and then discussed any differences between the notes and made revisions as necessary to create one note. Bre Rudd , 05/19/22 , 09:25 IBAN TOLBERT May 19, 2022 07:40 BRE RUDD DO May 19, 2022 09:25
[2022-05-19] MEDS: PANTOPRAZOLE 40 MG (PROTONIX) VIAL IV SCH (08:00)
[2022-05-19] MEDS: PIPERACILLIN SODIUM/TAZOBACTAM 4.5 GM in NS (IVPB) 100 ML IV SCH (08:01)
[2022-05-19] MEDS: DOCUSATE SODIUM 100 MG (COLACE) CAP PO SCH (08:02)
[2022-05-19 08:12] VITALS: BP 115/67
[2022-05-19] MEDS ORDERED: LACTATED RINGERS 1,000 ML IV SCH (09:16)
[2022-05-19] MEDS ORDERED: HYDROcodone/APAP 7.5 MG/325 MG (LORTAB, LORCET PLUS) TABLET PO PRN (09:30)
--- NOTE | 2022-05-19 09:30 | Discharge Inst-Surgical ---
Discharge Inst-Surgical Depart Medication/Instructions New, Converted or Re-Newed RX: Other (use home meds for pain control) Patient Instructions Follow up Appt: Make appointment for 1 week. [phone] Instructions: No lifting greater than 20 pounds. No strenuous activity. May shower in 24 hours, no tub bath or soaking. Use incentive spirometer at home as directed. No Smoking Skin/Wound Care: May remove bandages in am. You need to leave the Dermabond on incision it will fall off on it's own. Symptoms to Report: Appetite Changes, Extremity Discoloration, Numbness/Tingling, Swelling Increased, Bleeding Excessive, Eyesight Changes, Pain Increased, Urine Color Change, Constipation(Persistent), Fever over 101 degree F, Pain/Pressure in [address], Urinating Difficulty, Cough Up/Vomit Blood, Heart Beat Irreg/Pounding, Pain/Pressure in jaw, Cramps in feet or legs, Lightheadedness, Pain/Pressure in shoulder, Diarrhea(Persistent), Memory Changes Suddenly, Questions/Concerns, Weight gain consecutive days, Dizziness/Fainting, Nausea/Vomiting, Shortness of Breath, Weight gain over 2 pounds If questions or concerns contact your physician Or seek help at emergency department. Activity Activity Instructions: Avoid Stress to Incision Driving Instructions: No Driving for 2 Weeks Diet Discharge Diet: Avoid Fatty Foods, Low Fat/Low Cholesterol Diet After 24 Hours: Clear Liquid if Nauseous If Any Problems/Questions/Issu: Contact Your Physician, Go to Emergency Room Skin/Wound Care Infection Signs and Symptoms: Increased Redness, Foul Odor of Wound, Increased Drainage, Skin Itchy or Has a Rash, Increased Swelling, Temperature Above 101 F Bathing Instructions: Shower Stitches/[place]/Dermabond Dis: Dermabond BRE JAY DO May 19, 2022 09:30
--- NOTE | 2022-05-19 09:31 | Anesthesia-General Post-Op ---
General Patient Condition Mental Status/LOC: Same as Preop Cardiovascular: Satisfactory Nausea/Vomiting: Absent Respiratory: Satisfactory Pain: Controlled Complications: Absent Post Op Complications Complications None Follow Up Care/Instructions Patient Instructions None needed. Anesthesia/Patient Condition Patient Condition Patient is doing well, no complaints, stable vital signs, no apparent adverse anesthesia problems. No complications reported per nursing. D/C home per [facility] [place] Criteria: Yes ALEJANDRO WALTERS CRNA May 19, 2022 09:31
[2022-05-19 11:41] VITALS: BP 118/68
[2022-05-19] MEDS: ENOXAPARIN 40 MG/0.4 ML (LOVENOX) SYR SC SCH (11:57)
== END 2022-05-19 13:06 | disposition home or self-care (01) | DRG 418 ==
LOC: EDUNIT# 13:36 → ER 13:38 → 4TH 23:45
PROVIDERS: ADMIT Surgery; ATTEND Surgery
PROC: BF502Z0 Other Imaging of Bile Ducts using Fluorescing Agent, Intraoperative (ICD-10-PCS; 2022-05-18)
PROC: 0FT44ZZ Resection of Gallbladder, Percutaneous Endoscopic Approach (ICD-10-PCS; principal; 2022-05-18 11:02)
DX: K80.63 Calculus of gallbladder and bile duct with acute cholecystitis with obstruction (principal); C90.00 Multiple myeloma not having achieved remission; K82.A1 Gangrene of gallbladder in cholecystitis; E87.6 Hypokalemia; R31.0 Gross hematuria; K59.03 Drug induced constipation; T40.2X5A Adverse effect of other opioids, initial encounter; I10 Essential (primary) hypertension; H54.3 Unqualified visual loss, both eyes; F32.A Depression, unspecified; Z86.718 Personal history of other venous thrombosis and embolism; Z79.01 Long term (current) use of anticoagulants; Z87.891 Personal history of nicotine dependence
CPT/HCPCS: 36415; 71046; 76000; 76705; 80053; 81000; 83605; 83690; 85007; 85025; 85027; 85610; 85730; 86141; 87040; 87081; 87088; 94760

== ENCOUNTER → 2022-09-27 | Outpatient (CLI) | payer MEDICARE ==
[~2022-09-27] MED LIST changes: +AMLO-251 PO; +CALC-694 PO; +ENAL-66 PO; +ENAL1TAB14 PO; -ENLP5T PO; +FLUO40CA PO; +HYDR-3817 PO; +LENA10CA PO; +RIVA10TA PO
--- NOTE | 2022-09-27 13:34 | Diagnostic Imaging Report ---
INDICATION: History of nontraumatic fracture COMPARISON: 06/18/2019 FINDINGS: AP Spine L1-L4: [BMD (g/cm2): 1.072] [T-Score: -1.4] [Z-Score: -1.2] [BMD Previous: 1.060] [BMD % Change: 1.1] LT Hip Neck: [BMD (g/cm2): 0.766] [T-Score: -2.3] [Z-Score: -1.5] LT Hip Total: [BMD (g/cm2):0.879] [T-Score:-1.5] [Z-Score: -1.2] [BMD Previous: 0.855] [BMD % Change: 2.8] RT Hip Neck: [BMD (g/cm2):0.780] [T-Score:-2.2] [Z-Score:-1.4] RT Hip Total: [BMD (g/cm2):0.881] [T-score:-1.5] [Z-Score:-1.2] [BMD Previous:0.860] [BMD % Change:2.4] *Indicates significant change from prior examination based on 95% confidence level. World Health Organization criteria for BMD interpretation classify patients as Normal (T-score at or above -1.0), Osteopenic (T-score between -1.0 and -2.5) or Osteoporotic (T-score at or below -2.5). LIMITATIONS AND MODIFICATION: None. FRACTURE RISK (FRAX SCORE): The ten year probability of (%): Major Osteoporotic Fracture: [13.7] Hip Fracture: [3.0] IMPRESSION: 1. Osteopenia (Low bone mass). 2. No significant change in bone mineral density since prior examination. 3. See below National Osteoporosis Foundation guidelines on when to potentially initiate pharmacologic therapy. Based on the National Osteoporosis Foundation Guidelines, pharmacologic treatment should be initiated in any of the following, unless clinical conditions suggest otherwise: * Any patient with prior fragility fracture of the hip or vertebrae. A spine fracture indicates 5X risk for subsequent spine fracture and 2X risk for subsequent hip fracture. * Osteoporosis (T-score <-2.5). * Postmenopausal women and men age 50 and older with low bone mass/osteopenia (T-score between -1.0 and -2.5) by DXA and 10-year major osteoporotic fracture greater than 20% or a 10-year probability of hip fracture greater than 3%. These fracture risks are supplied above in the FRAX score, if applicable. * Clinician judgement and/or patient preferences may indicate treatment for people with 10-year fracture probabilities above or below these levels. Dictated by: Dictated on workstation # [id number]
== END ==
LOC: RAD 09:34
PROVIDERS: ATTEND Nurse Practitioner Adult Health
DX: C90.00 Multiple myeloma not having achieved remission (principal); M85.80 Other specified disorders of bone density and structure, unspecified site; Z87.81 Personal history of (healed) traumatic fracture
CPT/HCPCS: 77080